=== PATIENT | male | born 1950 | race Caucasian/White ===

== ENCOUNTER 2016-12-29 18:52 | Inpatient (IN) | payer MEDICARE, MEDICAID ==
[~2016-12-29] VITALS: Ht 170.2 cm; Wt 72.7 kg
[~2016-12-29 18:52] MED LIST: BACL-19 PO; DIAZ5TAB PO; LEVO5TAB20 PO; OXYC5CAP4 PO; RANI150T8 PO; RANI300C PO; SIMV5TAB5 PO; ZOLP-413 PO
[2016-12-29] MEDS ORDERED: CALCIUM CHLORIDE 10%, 10ML SYR ONE (19:15)
[2016-12-29] MEDS ORDERED: DILTIAZEM 5 MG/ML, 5ML ONE (19:15)
[2016-12-29] MEDS ORDERED: SODIUM CHLORIDE FLUSH 10ML SYR IVF ONE (19:30)
[2016-12-29] MEDS ORDERED: CALCIUM CHLORIDE 10%, 10ML SYR IVPush ONE (19:30)
[2016-12-29] MEDS ORDERED: SODIUM CHLORIDE 0.9% 1,000ML IVBOLUS ONE ×2 (19:30→20:00)
[2016-12-29] MEDS ORDERED: CALCIUM CHLORIDE 13.6 MEQ in SODIUM CHLORIDE 0.9% 100 ML IV ONE (19:30)
[2016-12-29] MEDS ORDERED: DILTIAZEM 5 MG/ML, 5ML IVPush ONE (19:30)
[2016-12-29 19:46] LABS: BLOOD UREA NITROGEN 24 mg/dL (7-18)
[2016-12-29 19:52] LABS: ASPARTATE AMINO TRANSFERASE 6 U/L (15-37)
[2016-12-29 19:53] LABS: IS PT STATUS REG ER OR PRE ER? YES
[2016-12-29] MEDS ORDERED: CALC1POW PO (20:38)
[2016-12-29] MEDS ORDERED: POLY17PO5 PO (20:38)
[2016-12-29] MEDS ORDERED: LABETALOL 5MG/ML, 20ML IV PRN (22:00)
[2016-12-29] MEDS ORDERED: DOCUSATE 100 MG CAPSULE PO PRN (22:00)
[2016-12-29] MEDS ORDERED: BISACODYL 10 MG SUPP PR PRN (22:00)
[2016-12-29] MEDS ORDERED: POLYETHYLENE GLYCOL 17 GM PACKET PO PRN (22:00)
[2016-12-29] MEDS ORDERED: ONDANSETRON ODT 4 MG PO PRN (22:00)
[2016-12-29 22:41] VITALS: BP 152/64
[2016-12-30] MEDS: METOPROLOL TARTRATE 25 MG TABLET PO SCH ×3 (00:21→17:32)
[2016-12-30] MEDS: HEPARIN 5,000 UNITS/ML, 1ML SQ SCH ×3 (00:21→17:32)
[2016-12-30 00:30] LABS: IS PT STATUS REG ER OR PRE ER? NO
[2016-12-30] MEDS: ZOLPIDEM 5MG TABLET PO PRN (00:59)
[2016-12-30 02:26] VITALS: BP 93/51
[2016-12-30] MEDS: ASPIRIN 325 MG TABLET PO SCH (05:55)
[2016-12-30 06:03] LABS: ASPARTATE AMINO TRANSFERASE 10 U/L (15-37); BLOOD UREA NITROGEN 34 mg/dL (7-18)
[2016-12-30 06:04] LABS: IS PT STATUS REG ER OR PRE ER? NO
[2016-12-30 07:39] VITALS: BP 111/66
[2016-12-30] MEDS: SEVELAMER 800MG TABLET PO SCH ×3 (08:47→17:32)
[2016-12-30] MEDS: FAMOTIDINE 20 MG TABLET PO SCH (08:47)
[2016-12-30 14:00] VITALS: BP 99/65
[2016-12-30 18:57] VITALS: BP 106/70
[2016-12-30 18:58] LABS: IS PT STATUS REG ER OR PRE ER? NO
[2016-12-30] MEDS ORDERED: SIMVASTATIN 10 MG TABLET PO SCH (21:00)
[2016-12-31] MEDS: ZOLPIDEM 5MG TABLET PO PRN (00:36)
[2016-12-31] MEDS: HEPARIN 5,000 UNITS/ML, 1ML SQ SCH ×2 (00:36→10:57)
[2016-12-31 01:04] VITALS: BP 117/70
[2016-12-31] MEDS: METOPROLOL TARTRATE 25 MG TABLET PO SCH (05:48)
[2016-12-31] MEDS: ASPIRIN 325 MG TABLET PO SCH (05:48)
[2016-12-31 06:08] LABS: BLOOD UREA NITROGEN 58 mg/dL (7-18)
[2016-12-31 06:24] LABS: IS PT STATUS REG ER OR PRE ER? NO
[2016-12-31] MEDS ORDERED: REGADENOSON 0.4 MG/5 ML SYRINGE ONE (09:26)
[2016-12-31] MEDS: FAMOTIDINE 20 MG TABLET PO SCH (10:56)
[2016-12-31] MEDS: SEVELAMER 800MG TABLET PO SCH ×2 (10:56→12:00)
[2016-12-31 11:38] VITALS: BP 108/76
[2016-12-31] MEDS ORDERED: METO25TA35 PO (12:39)
[2016-12-31] MEDS ORDERED: ASPI325T4 PO (12:40)
[2016-12-31 13:35] VITALS: BP 119/66
== END 2016-12-31 15:04 | disposition home or self-care (01) | DRG 291 ==
LOC: ED 20:21 → EDIP 21:23 → 5SO 22:12
PROVIDERS: ADMIT Internal Medicine; ATTEND Internal Medicine
DX: I13.2 Hypertensive heart and chronic kidney disease with heart failure and with stage 5 chronic kidney disease, or end stage renal disease (principal); N18.6 End stage renal disease; I50.20 Unspecified systolic (congestive) heart failure; I48.0 Paroxysmal atrial fibrillation; E83.52 Hypercalcemia; G25.3 Myoclonus; F31.9 Bipolar disorder, unspecified; F41.9 Anxiety disorder, unspecified; E11.22 Type 2 diabetes mellitus with diabetic chronic kidney disease; I25.10 Atherosclerotic heart disease of native coronary artery without angina pectoris; F22 Delusional disorders; J44.9 Chronic obstructive pulmonary disease, unspecified; G47.8 Other sleep disorders; G47.419 Narcolepsy without cataplexy; F17.210 Nicotine dependence, cigarettes, uncomplicated; G89.29 Other chronic pain; M54.9 Dorsalgia, unspecified; I95.9 Hypotension, unspecified; Z99.2 Dependence on renal dialysis; Z88.6 Allergy status to analgesic agent; Z88.1 Allergy status to other antibiotic agents; Z86.73 Personal history of transient ischemic attack (TIA), and cerebral infarction without residual deficits; Z91.19 Patient's noncompliance with other medical treatment and regimen; Z88.8 Allergy status to other drugs, medicaments and biological substances; Z95.5 Presence of coronary angioplasty implant and graft
CPT/HCPCS: 36415; 71010; 78452; 80048; 80053; 80061; 82310; 83735; 83880; 84436; 84439; 84443; 84484; 85025; 85379; 85610; 85730; 93005; 93017; 93306; 96374; 96375; J1644; J2785; A9502; C9898; J7030

== ENCOUNTER 2019-10-04 18:32 | Inpatient (IN) | payer MEDICARE, MEDICAID ==
[~2019-10-04] VITALS: Ht 170.2 cm; Wt 70.1 kg
[~2019-10-04 18:32] MED LIST changes: +ASPI325T17 PO; +CALC1POW PO; -LEVO5TAB20 PO; +LEVO5TAB29 PO; +METO25TA35 PO; +OXYC5CAP2 PO; -OXYC5CAP4 PO; +POLY17PO5 PO; +RANI-467 PO; -RANI150T8 PO; +SIMV5TAB14 PO; -SIMV5TAB5 PO
--- NOTE | 2019-10-04 19:19 | NUR ---
PT AMBULATORY TO ED FROM HOME. C/O COUGH, CONGESTION, CP, SOB, EAR ACHE, ABDOMINAL PAIN, CONSTIPATION, CHILLS X1 MONTH. EXP WHEEZES THROUGHOUT. 94%RA. CLEAR MUCUS, PROD COUGH. PIV EST 20 L AC. AV FISTUAL R ARM, +THRILL+BRUIT. A&OX4 GCS 15. 5/10 CHEST TIGHTNESS, NONRADIATING. ERMD AT BEDSIDE FOR EVAL. LABS SENT. CXR PENDING. CALL [place] IN REACH. CTM.
[2019-10-04 19:31] LABS: ALANINE AMINOTRANSFERASE 19 U/L (12-78); ALBUMIN 3.4 g/dL (3.4-5.0); ANION GAP 8 mmol/L (5-15); CALCIUM 9.9 mg/dL (8.5-10.1); CHLORIDE 98 mmol/L (98-107); CREATININE 7.54 mg/dL (0.7-1.3)
[2019-10-04 19:35] LABS: ALKALINE PHOSPHATASE 106 U/L (45-117); BILIRUBIN,TOTAL 0.6 mg/dL (0.2-1.0); TOTAL PROTEIN 7.2 g/dL (6.4-8.2)
[2019-10-04 19:45] LABS: BASOPHILS # (AUTO) 0.02 x10^3/uL (0-0.1); BASOPHILS % (AUTO) 0 % (0-1); EOSINOPHILS # (AUTO) 0.03 x10^3/uL (0-0.4); EOSINOPHILS % (AUTO) 1 % (1-7); LYMPHOCYTES # (AUTO) 0.82 x10^3/uL (1-3.4); LYMPHOCYTES % (AUTO) 15 % (22-44); MD MORPH REVIEW ONLY; MEAN CORPUSCULAR HGB CONC 33.1 g/dL (33.2-36.2); MEAN CORPUSCULAR VOLUME 96.7 fL (81-97); MONOCYTES # (AUTO) 0.56 x10^3/uL (0.2-0.8); MONOCYTES % (AUTO) 10 % (2-9); NEUTROPHILS # (AUTO) 4.15 x10^3/uL (1.8-6.8); NEUTROPHILS % (AUTO) 75 % (42-75); PLATELET COUNT 73 x10^3/uL (130-400); RED BLOOD COUNT 3.72 x10^6/uL (4.38-5.82); RED CELL DISTRIBUTION WIDTH 14.1 % (9.4-14.8)
[2019-10-04 19:47] LABS: <PLATELET ESTIMATE> DECREASED; <PLT MORPHOLOGY> NORMAL PLT MORPH; ANISOCYTOSIS 1+; OVALOCYTES 1+; POLYCHROMASIA 1+
--- NOTE | 2019-10-04 19:52 | NUR ---
RECHECK. NAD. CALL [place] IN REACH.
[2019-10-04] MEDS ORDERED: BENZONATATE 100 MG CAPSULE ONE (20:26)
--- NOTE | 2019-10-04 20:27 | NUR ---
pt c/o cough, tesselon rosie order obtained, k 5.6, aware. as
[2019-10-04] MEDS ORDERED: BENZONATATE 100 MG CAPSULE PO ONE (21:00)
--- NOTE | 2019-10-04 21:04 | NUR ---
pt to be admit for cp. aware and agrees. attempt x1 to call floor rn. as
--- NOTE | 2019-10-04 21:15 | NUR ---
report to niles chun. dr. kaur in room for eval. pt to be tx after. as
[2019-10-04] MEDS ORDERED: NITROGLYCERIN 0.4 MG BOTTLE (25 TABS) SL PRN (22:00)
[2019-10-04] MEDS ORDERED: DILTIAZEM 5 MG/ML, 5ML IVPush PRN (22:00)
[2019-10-04] MEDS ORDERED: PHARMACY MAY ADJ FOR RENAL FX MC PRN (22:00)
--- NOTE | 2019-10-04 22:19 | NUR ---
chapin changed. report to chel chun. as
[2019-10-04 22:43] VITALS: BP 170/77
[2019-10-04] MEDS: ATORVASTATIN 40 MG TABLET PO SCH (22:59)
[2019-10-04] MEDS: GUAIFENESIN 200 MG TABLET PO SCH (22:59)
[2019-10-04] MEDS: HEPARIN 5,000 UNITS/ML, 1ML SQ SCH (22:59)
[2019-10-04] MEDS: OXYcodone IR 5MG TABLET PO PRN (23:00)
[2019-10-05] VITALS (14 sets, daily range): BP systolic 81–191; BP diastolic 41–85
[2019-10-05] MEDS ORDERED: BENZONATATE 100 MG CAPSULE PO PRN (00:30)
[2019-10-05] MEDS: OXYcodone IR 5MG TABLET PO PRN (00:36)
[2019-10-05 01:02] LABS: TROPONIN I 0.043 ng/mL (0.000-0.045)
[2019-10-05 05:14] LABS: MEAN CORPUSCULAR HEMOGLOBIN 31.8 pg (27.5-34.5); MEAN CORPUSCULAR HGB CONC 32.5 g/dL (33.2-36.2); MEAN CORPUSCULAR VOLUME 97.7 fL (81-97); MEAN PLATELET VOLUME 9.3 fL (7.4-10.4); PLATELET COUNT 81 x10^3/uL (130-400); RED CELL DISTRIBUTION WIDTH 13.9 % (9.4-14.8)
[2019-10-05 05:26] LABS: ANION GAP 4 mmol/L (5-15); CALCIUM 10.1 mg/dL (8.5-10.1); CHLORIDE 96 mmol/L (98-107)
[2019-10-05] MEDS: ASPIRIN 325 MG TABLET EC PO SCH (05:29)
[2019-10-05] MEDS: GUAIFENESIN 200 MG TABLET PO SCH ×4 (05:29→21:00)
[2019-10-05] MEDS: METOPROLOL TARTRATE 25 MG TAB PO SCH ×2 (05:29→18:00)
[2019-10-05] MEDS: HEPARIN 5,000 UNITS/ML, 1ML SQ SCH ×3 (05:29→22:00)
[2019-10-05 05:33] LABS: CHOL/HDL RATIO 2.2; CHOLESTEROL, TOTAL 125 mg/dL (140-239); CREATININE 8.42 mg/dL (0.7-1.3); HDL CHOL % 46 % (26-37); HDL CHOLESTEROL (DIRECT) 58 mg/dL (40-60); LDL CHOLESTEROL,CALCULATED 46 mg/dL (54-169); LDL/HDL RATIO 0.8 (0.5-3.0); TRIGLYCERIDES 105 mg/dL (50-200); TROPONIN I 0.025 ng/mL (0.000-0.045); VLDL CHOLESTEROL 21 mg/dL (0-25)
[2019-10-05 05:46] LABS: BASOPHILS # (AUTO) 0.03 x10^3/uL (0-0.1); BASOPHILS % (AUTO) 0 % (0-1); EOSINOPHILS % (AUTO) 0 % (1-7); LYMPHOCYTES # (AUTO) 1.13 x10^3/uL (1-3.4); LYMPHOCYTES % (AUTO) 18 % (22-44); MD SCAN; MONOCYTES # (AUTO) 0.75 x10^3/uL (0.2-0.8); MONOCYTES % (AUTO) 12 % (2-9); NEUTROPHILS # (AUTO) 4.24 x10^3/uL (1.8-6.8); NEUTROPHILS % (AUTO) 69 % (42-75)
[2019-10-05] MEDS ORDERED: REGULAR INSULIN 62.5 UNITS in SODIUM CHLORIDE 0.9% 249.375 ML IV PRN (07:30)
[2019-10-05] MEDS ORDERED: CEFUROXIME 1.5 GM in SODIUM CHLORIDE 0.9% 50 ML IVPB PRN (07:30)
[2019-10-05] MEDS ORDERED: MANNITOL PMX 20% 500 ML IVPB PRN (07:30)
[2019-10-05] MEDS ORDERED: ALBUMIN HUMAN 5% 500 ML IV PRN (07:30)
[2019-10-05] MEDS ORDERED: VANCOMYCIN 1,100 MG in SODIUM CHLORIDE 0.9% 250 ML IV PRN (07:30)
[2019-10-05] MEDS ORDERED: PHENYLEPHRINE 10 MG in SODIUM CHLORIDE 0.9% 249 ML IV PRN (07:30)
[2019-10-05] MEDS ORDERED: POTASSIUM CHLORIDE 80 MEQ, SODIUM BICARBONATE 8.4% 10 MEQ, MAGNESIUM SULFATE 0.5 GM, LI... IV PRN (07:30)
[2019-10-05] MEDS ORDERED: EPINEPHRINE 2 MG in SODIUM CHLORIDE 0.9% 248 ML IV SCH (07:30)
[2019-10-05] MEDS ORDERED: DEXMEDETOMIDINE 200 MCG in SODIUM CHLORIDE 0.9% 48 ML IV SCH (07:30)
[2019-10-05] MEDS ORDERED: FAMOTIDINE 20 MG TABLET PO SCH (09:00)
[2019-10-05] MEDS: POLYETHYLENE GLYCOL 17 GM PACKET PO SCH (09:00)
[2019-10-05] MEDS ORDERED: REGADENOSON 0.4 MG/5 ML SYRINGE ONE (09:41)
[2019-10-05] MEDS: ONDANSETRON 2MG/ML, 2ML IVPush PRN (10:22)
[2019-10-05] MEDS ORDERED: AZITHROMYCIN 500 MG TABLET PO ONE (11:00)
[2019-10-05 11:03] LABS: RAPID INFLUENZA A Negative (Negative); RAPID INFLUENZA B Negative (Negative)
[2019-10-05] MEDS ORDERED: CALCIUM CHLORIDE 10%, 10ML SYR ONE ×5 (11:24→18:27)
[2019-10-05] MEDS ORDERED: EPINEPHRINE SYRINGE 0.1 MG/ML, 10ML ONE ×2 (11:24→15:03)
[2019-10-05] MEDS ORDERED: ADENOSINE 6 MG/2 ML ONE (11:24)
[2019-10-05] MEDS ORDERED: ROCURONIUM 10MG/ML,5ML ONE ×4 (11:25→18:28)
[2019-10-05] MEDS ORDERED: PROPOFOL 10 MG/ML, 100ML IV ONE (11:25)
[2019-10-05] MEDS ORDERED: ETOMIDATE 20 MG/10 ML ONE (11:25)
[2019-10-05] MEDS: morphine SULFATE 10 MG/ML, 1ML IVPush PRN (12:34)
[2019-10-05] MEDS ORDERED: ROCURONIUM 10 MG/ML,10ML IVPush ONE (13:35)
[2019-10-05] MEDS ORDERED: ETOMIDATE 20 MG/10 ML IVPush ONE (13:35)
[2019-10-05] MEDS ORDERED: NITROGLYCERIN/D5W PMX 250 ML ONE (13:40)
[2019-10-05 13:42] LABS: ALANINE AMINOTRANSFERASE 18 U/L (12-78); ANION GAP 9 mmol/L (5-15); CALCIUM 10.5 mg/dL (8.5-10.1); CHLORIDE 97 mmol/L (98-107); CREATININE 9.03 mg/dL (0.7-1.3)
[2019-10-05 13:46] LABS: ALKALINE PHOSPHATASE 128 U/L (45-117); BILIRUBIN,TOTAL 0.8 mg/dL (0.2-1.0); TOTAL PROTEIN 8.9 g/dL (6.4-8.2); TROPONIN I 0.065 ng/mL (0.000-0.045)
[2019-10-05] MEDS ORDERED: ADENOSINE 6 MG/2 ML IVPush ONE ×2 (13:52→13:56)
[2019-10-05] MEDS ORDERED: ADENOSINE 90 MG/30 ML IVPush ONE (13:56)
[2019-10-05] MEDS ORDERED: NITROGLYCERIN/D5W PMX 250 ML IV PRN (14:00)
[2019-10-05] MEDS ORDERED: FENTANYL PF 100 MCG/2ML ONE (14:02)
[2019-10-05] MEDS ORDERED: DILTIAZEM 5 MG/ML, 5ML IVPush ONE (14:03)
[2019-10-05] MEDS ORDERED: LIDOCAINE 2%, 20ML ONE (14:04)
[2019-10-05] MEDS ORDERED: ADENOSINE 60 MG/20 ML IVPush ONE (14:43)
[2019-10-05] MEDS ORDERED: PROPOFOL 100 ML IV PRN ×2 (15:00→17:28)
[2019-10-05] MEDS ORDERED: EPINEPHRINE 1 MG/ML, 1ML ONE ×6 (15:03→18:27)
[2019-10-05] MEDS ORDERED: AMIODARONE 50 MG/ML, 3ML ONE ×3 (15:03→18:27)
[2019-10-05] MEDS ORDERED: MAGNESIUM SULFATE 1 GM/2 ML ONE (15:03)
[2019-10-05] MEDS ORDERED: CEFAZOLIN 1,000 MG ONE (15:31)
[2019-10-05] MEDS ORDERED: AMIODARONE 900 MG in DEXTROSE 5% 482 ML IV PRN (16:00)
[2019-10-05] MEDS ORDERED: FILTER 0.22 MICRON FOR AMIODARONE IV PRN (16:00)
[2019-10-05] MEDS ORDERED: EPINEPHRINE 2 MG in SODIUM CHLORIDE 0.9% 248 ML IV PRN (16:30)
[2019-10-05] MEDS ORDERED: SODIUM BICARB 8.4%, 50ML SYRINGE ONE ×7 (16:46→18:27)
[2019-10-05] MEDS ORDERED: FENTANYL PF 250 MCG/5ML ONE (16:51)
[2019-10-05] MEDS ORDERED: MIDAZOLAM 10MG/2 ML ONE (16:51)
[2019-10-05] MEDS ORDERED: VASOPRESSIN 100 UNIT in SODIUM CHLORIDE 0.9% 495 ML IV PRN (17:00)
[2019-10-05] MEDS ORDERED: HEPARIN 1,000 UNITS/ML, 30ML ONE (19:05)
[2019-10-05] MEDS ORDERED: EPINEPHRINE 5 MG in SODIUM CHLORIDE 0.9% 245 ML IV PRN (19:25)
[2019-10-05] MEDS ORDERED: VANCOMYCIN PER PHARMACY MC PRN (19:30)
[2019-10-05] MEDS ORDERED: VECURONIUM 50 MG in SODIUM CHLORIDE 0.9% 250 ML IV PRN (19:30)
[2019-10-05] MEDS ORDERED: VECURONIUM 10 MG IVPush ONE (19:30)
[2019-10-05] MEDS ORDERED: FENTANYL PF 2,500 MCG in SODIUM CHLORIDE 0.9% 200 ML IV PRN (19:30)
[2019-10-05] MEDS ORDERED: PHARMACY MAY ADJ FOR RENAL FX MC PRN (19:30)
[2019-10-05] MEDS ORDERED: PHARMACOKINETIC MONITORING MC PRN (20:30)
[2019-10-05] MEDS: ATORVASTATIN 40 MG TABLET PO SCH (21:00)
[2019-10-05] MEDS ORDERED: EPINEPHRINE 10 MG in SODIUM CHLORIDE 0.9% 240 ML IV PRN (21:22)
[2019-10-05] MEDS ORDERED: PHARMACOKINETIC CONSULTATION MC ONE (21:30)
[2019-10-05] MEDS: MIDAZOLAM HCL 25 MG in SODIUM CHLORIDE 0.9% 245 ML IV PRN (21:31)
[2019-10-05] MEDS: PIPERACILLIN/TAZO/PMX 3.375GM 50 ML IV SCH (21:33)
[2019-10-05 22:13] LABS: ALANINE AMINOTRANSFERASE 675 U/L (12-78); ALBUMIN 2.7 g/dL (3.4-5.0); ANION GAP 13 mmol/L (5-15); CALCIUM 9.1 mg/dL (8.5-10.1); CHLORIDE 106 mmol/L (98-107); CREATININE 4.93 mg/dL (0.7-1.3)
[2019-10-05 22:20] LABS: INTERNATIONAL NORMALIZED RATIO 1.29 (0.93-1.1); PROTHROMBIN TIME 13.7 Seconds (9.6-11.5)
[2019-10-05 22:21] LABS: ALKALINE PHOSPHATASE 75 U/L (45-117); BILIRUBIN,TOTAL 2.3 mg/dL (0.2-1.0); TOTAL PROTEIN 5.3 g/dL (6.4-8.2)
[2019-10-05 22:47] LABS: MEAN CORPUSCULAR HEMOGLOBIN 30.8 pg (27.5-34.5); MEAN CORPUSCULAR HGB CONC 33.7 g/dL (33.2-36.2); MEAN CORPUSCULAR VOLUME 91.2 fL (81-97); RED BLOOD COUNT 4.74 x10^6/uL (4.38-5.82); RED CELL DISTRIBUTION WIDTH 15.9 % (9.4-14.8)
[2019-10-05 22:57] LABS: MD YES; MEAN PLATELET VOLUME 8.8 fL (7.4-10.4); PLATELET COUNT 79 x10^3/uL (130-400)
[2019-10-05 22:58] LABS: <PLATELET ESTIMATE> DECREASED; <PLT MORPHOLOGY> NORMAL PLT MORPH; BAND#(MANUAL) 0.71 x10^3/uL; BANDS%(MANUAL) 7 % (0-7); LYMPH#(MANUAL) 0.31 x10^3/uL (1-3.4); LYMPHS% (MANUAL) 3 % (22-44); METAMYELOCYTES% (MANUAL) 2 % (0-1); MONOS#(MANUAL) 0.31 x10^3/uL (0.3-2.7); MONOS% (MANUAL) 3 % (2-9); SEG#(MANUAL) 8.67 x10^3/uL (1.8-6.8); SEGS% (MANUAL) 85 % (42-75)
[2019-10-05 22:59] LABS: ANISOCYTOSIS 1+; OVALOCYTES 1+; POLYCHROMASIA 1+
[2019-10-05] MEDS: PHENYLEPHRINE 20 MG in SODIUM CHLORIDE 0.9% 248 ML IV PRN (23:31)
[2019-10-06] MEDS ORDERED: VANCOMYCIN 1,300 MG in SODIUM CHLORIDE 0.9% 250 ML IV ONE
[2019-10-06] MEDS: ARTIFICIAL TEARS OINT 3.5 GM EACHEYE SCH ×4 (02:02→17:05)
[2019-10-06] MEDS: PIPERACILLIN/TAZO/PMX 3.375GM 50 ML IV SCH ×3 (02:02→14:33)
[2019-10-06 02:29] LABS: ALANINE AMINOTRANSFERASE 698 U/L (12-78); ALBUMIN 2.2 g/dL (3.4-5.0); ANION GAP 15 mmol/L (5-15); CALCIUM 8.5 mg/dL (8.5-10.1); CHLORIDE 106 mmol/L (98-107); CREATININE 6.22 mg/dL (0.7-1.3)
[2019-10-06 02:37] LABS: ALKALINE PHOSPHATASE 67 U/L (45-117); BILIRUBIN,TOTAL 2.3 mg/dL (0.2-1.0); TOTAL PROTEIN 4.5 g/dL (6.4-8.2)
[2019-10-06 03:11] LABS: MEAN CORPUSCULAR HEMOGLOBIN 30.6 pg (27.5-34.5); MEAN CORPUSCULAR HGB CONC 33.5 g/dL (33.2-36.2); MEAN CORPUSCULAR VOLUME 91.2 fL (81-97); MEAN PLATELET VOLUME 9.1 fL (7.4-10.4); PLATELET COUNT 64 x10^3/uL (130-400); RED BLOOD COUNT 4.38 x10^6/uL (4.38-5.82); RED CELL DISTRIBUTION WIDTH 15.9 % (9.4-14.8)
[2019-10-06 03:13] LABS: MD YES
[2019-10-06 03:15] LABS: BAND#(MANUAL) 0.79 x10^3/uL; BANDS%(MANUAL) 9 % (0-7); LYMPH#(MANUAL) 1.06 x10^3/uL (1-3.4); LYMPHS% (MANUAL) 12 % (22-44); METAMYELOCYTES# (MANUAL) 0.26 x10^3/uL (0-0); METAMYELOCYTES% (MANUAL) 3 % (0-1); REACTIVE LYMPHS # (MANUAL) 0.09 x10^3/uL (0-0); REACTIVE LYMPHS % (MANUAL) 1 % (0-0); SEGS% (MANUAL) 75 % (42-75)
[2019-10-06 03:16] LABS: ANISOCYTOSIS 1+
[2019-10-06 03:17] LABS: <PLATELET ESTIMATE> DECREASED; <PLT MORPHOLOGY> NORMAL PLT MORPH; OVALOCYTES 1+; PMNS WITH VACUOLES 1+; POLYCHROMASIA 1+
[2019-10-06] MEDS: MIDAZOLAM HCL 25 MG in SODIUM CHLORIDE 0.9% 245 ML IV PRN (03:26)
[2019-10-06] MEDS ORDERED: FENTANYL PF 1,000 MCG in SODIUM CHLORIDE 0.9% 80 ML IV PRN (04:00)
[2019-10-06] MEDS: PHENYLEPHRINE 20 MG in SODIUM CHLORIDE 0.9% 248 ML IV PRN (04:06)
[2019-10-06] MEDS: INSULIN LISPRO 100 UNITS/ML, PEN MEDIUM DOSE SS SQ-INSULIN SCH ×5 (04:33→20:00)
[2019-10-06] MEDS: HEPARIN 5,000 UNITS/ML, 1ML SQ SCH (06:00)
[2019-10-06] MEDS: GUAIFENESIN 200 MG TABLET PO SCH ×3 (06:00→14:52)
[2019-10-06] MEDS: ASPIRIN 325 MG TABLET EC PO SCH (06:00)
[2019-10-06] MEDS: METOPROLOL TARTRATE 25 MG TAB PO SCH ×2 (06:00→17:30)
[2019-10-06] MEDS ORDERED: PHENYLEPHRINE 50 MG in SODIUM CHLORIDE 0.9% 245 ML IV PRN ×2 (06:09→07:00)
[2019-10-06 06:23] LABS: MD YES; MEAN CORPUSCULAR HEMOGLOBIN 30.4 pg (27.5-34.5); MEAN CORPUSCULAR HGB CONC 33.4 g/dL (33.2-36.2); MEAN CORPUSCULAR VOLUME 90.8 fL (81-97); PLATELET COUNT 63 x10^3/uL (130-400); RED BLOOD COUNT 4.43 x10^6/uL (4.38-5.82)
[2019-10-06 06:30] LABS: ANISOCYTOSIS 1+; BAND#(MANUAL) 1.15 x10^3/uL; BANDS%(MANUAL) 12 % (0-7); LYMPH#(MANUAL) 0.67 x10^3/uL (1-3.4); LYMPHS% (MANUAL) 7 % (22-44); METAMYELOCYTES% (MANUAL) 1 % (0-1); NRBC % (MANUAL) 1 % (0-1); SEG#(MANUAL) 7.68 x10^3/uL (1.8-6.8); SEGS% (MANUAL) 80 % (42-75)
[2019-10-06] MEDS ORDERED: MIDAZOLAM HCL 50 MG in SODIUM CHLORIDE 0.9% 40 ML IV PRN ×2 (06:30→07:00)
[2019-10-06] MEDS ORDERED: VASOPRESSIN 20 UNIT in SODIUM CHLORIDE 0.9% 99 ML IV PRN ×3 (06:30→13:00)
[2019-10-06 06:31] LABS: <PLATELET ESTIMATE> DECREASED; <PLT MORPHOLOGY> NORMAL PLT MORPH; OVALOCYTES 1+; PMNS WITH VACUOLES 1+; POLYCHROMASIA 1+
[2019-10-06] MEDS: FENTANYL PF 1,000 MCG in SODIUM CHLORIDE 0.9% 80 ML IV PRN ×2 (07:00→17:22)
[2019-10-06] MEDS ORDERED: VECURONIUM 50 MG in SODIUM CHLORIDE 0.9% 50 ML IV PRN (07:00)
[2019-10-06 07:17] LABS: ALANINE AMINOTRANSFERASE 809 U/L (12-78); ALBUMIN 2.2 g/dL (3.4-5.0); ANION GAP 8 mmol/L (5-15); CALCIUM 8.4 mg/dL (8.5-10.1); CHLORIDE 107 mmol/L (98-107); CREATININE 6.33 mg/dL (0.7-1.3)
[2019-10-06 07:23] LABS: ALKALINE PHOSPHATASE 65 U/L (45-117); BILIRUBIN,TOTAL 2.5 mg/dL (0.2-1.0); TOTAL PROTEIN 4.4 g/dL (6.4-8.2); VANCOMYCIN,RANDOM 30.1 mcg/mL
[2019-10-06] MEDS ORDERED: ALBUMIN HUMAN 25% 100 ML ONE (07:57)
[2019-10-06] MEDS: POLYETHYLENE GLYCOL 17 GM PACKET PO SCH (08:57)
[2019-10-06] MEDS ORDERED: AZITHROMYCIN 250 MG TABLET PO SCH (09:00)
[2019-10-06] MEDS: PANTOPRAZOLE 40 MG IV IV SCH (09:06)
[2019-10-06] MEDS ORDERED: ALBUMIN HUMAN 5% 500 ML IV ONE (09:30)
[2019-10-06 09:44] LABS: ALANINE AMINOTRANSFERASE 800 U/L (12-78); ALBUMIN 2.7 g/dL (3.4-5.0); ANION GAP 8 mmol/L (5-15); CALCIUM 8.1 mg/dL (8.5-10.1); CHLORIDE 106 mmol/L (98-107); CREATININE 6.37 mg/dL (0.7-1.3)
[2019-10-06 09:53] LABS: ALKALINE PHOSPHATASE 65 U/L (45-117); BILIRUBIN,TOTAL 2.8 mg/dL (0.2-1.0); TOTAL PROTEIN 4.9 g/dL (6.4-8.2)
[2019-10-06 10:07] LABS: MEAN CORPUSCULAR HEMOGLOBIN 30.7 pg (27.5-34.5); MEAN CORPUSCULAR VOLUME 90.4 fL (81-97); MEAN PLATELET VOLUME 8.9 fL (7.4-10.4); PLATELET COUNT 58 x10^3/uL (130-400); RED BLOOD COUNT 4.38 x10^6/uL (4.38-5.82); RED CELL DISTRIBUTION WIDTH 15.7 % (9.4-14.8)
[2019-10-06 10:08] LABS: MD YES
[2019-10-06 10:10] LABS: BAND#(MANUAL) 2.78 x10^3/uL; BANDS%(MANUAL) 26 % (0-7); LYMPH#(MANUAL) 1.61 x10^3/uL (1-3.4); LYMPHS% (MANUAL) 15 % (22-44); METAMYELOCYTES# (MANUAL) 0.54 x10^3/uL (0-0); METAMYELOCYTES% (MANUAL) 5 % (0-1); MONOS#(MANUAL) 0.54 x10^3/uL (0.3-2.7); MONOS% (MANUAL) 5 % (2-9); SEG#(MANUAL) 5.24 x10^3/uL (1.8-6.8); SEGS% (MANUAL) 49 % (42-75)
[2019-10-06 10:11] LABS: <PLATELET ESTIMATE> DECREASED; <PLT MORPHOLOGY> NORMAL PLT MORPH; ANISOCYTOSIS 1+; OVALOCYTES 1+; POLYCHROMASIA 1+
[2019-10-06] MEDS ORDERED: CEFAZOLIN PMX 1GM/50ML 50 ML ONE (13:04)
[2019-10-06] MEDS ORDERED: CEFAZOLIN 1,000 MG IM ONE (13:11)
[2019-10-06] MEDS ORDERED: FENTANYL PF 250 MCG/5ML ONE (13:31)
[2019-10-06] MEDS ORDERED: CALCIUM CHLORIDE 10%, 10ML SYR ONE (13:31)
[2019-10-06 15:01] LABS: MEAN CORPUSCULAR HEMOGLOBIN 30.8 pg (27.5-34.5); MEAN CORPUSCULAR HGB CONC 33.8 g/dL (33.2-36.2); MEAN PLATELET VOLUME 9.1 fL (7.4-10.4); PLATELET COUNT 74 x10^3/uL (130-400); RED BLOOD COUNT 3.73 x10^6/uL (4.38-5.82); RED CELL DISTRIBUTION WIDTH 15.9 % (9.4-14.8)
[2019-10-06 15:02] LABS: MD YES
[2019-10-06 15:03] LABS: ALANINE AMINOTRANSFERASE 585 U/L (12-78); ALBUMIN 2.7 g/dL (3.4-5.0); ANION GAP 11 mmol/L (5-15); CALCIUM 8.4 mg/dL (8.5-10.1); CHLORIDE 107 mmol/L (98-107); CREATININE 6.38 mg/dL (0.7-1.3)
[2019-10-06 15:05] LABS: ALKALINE PHOSPHATASE 58 U/L (45-117); TOTAL PROTEIN 4.8 g/dL (6.4-8.2)
[2019-10-06 15:24] LABS: BAND#(MANUAL) 3.68 x10^3/uL; BANDS%(MANUAL) 35 % (0-7); LYMPH#(MANUAL) 1.89 x10^3/uL (1-3.4); LYMPHS% (MANUAL) 18 % (22-44); METAMYELOCYTES# (MANUAL) 0.84 x10^3/uL (0-0); METAMYELOCYTES% (MANUAL) 8 % (0-1); MONOS#(MANUAL) 0.32 x10^3/uL (0.3-2.7); MONOS% (MANUAL) 3 % (2-9); SEG#(MANUAL) 3.78 x10^3/uL (1.8-6.8); SEGS% (MANUAL) 36 % (42-75)
[2019-10-06 15:25] LABS: ANISOCYTOSIS 1+; OVALOCYTES 1+; POLYCHROMASIA 1+
[2019-10-06 15:26] LABS: <PLATELET ESTIMATE> DECREASED; <PLT MORPHOLOGY> NORMAL PLT MORPH
[2019-10-06] MEDS: HYDROCORTISONE 100 MG INJ. IVPush SCH (17:05)
[2019-10-06] MEDS: EPINEPHRINE 10 MG in SODIUM CHLORIDE 0.9% 240 ML IV PRN ×2 (17:24→22:24)
[2019-10-06] MEDS: AMIODARONE 450 MG in DEXTROSE 5% 241 ML IV PRN ×2 (17:25→22:24)
[2019-10-06] MEDS ORDERED: PIPERACILLIN/TAZO 0.75 GM in SODIUM CHLORIDE 0.9% 50 ML IV PRN (17:30)
[2019-10-06] MEDS: DEXMEDETOMIDINE 400 MCG in SODIUM CHLORIDE 0.9% 96 ML IV PRN (17:54)
[2019-10-06 20:16] LABS: ALANINE AMINOTRANSFERASE 616 U/L (12-78); ALBUMIN 2.7 g/dL (3.4-5.0); ANION GAP 8 mmol/L (5-15); CALCIUM 8.9 mg/dL (8.5-10.1); CHLORIDE 104 mmol/L (98-107); CREATININE 3.79 mg/dL (0.7-1.3)
[2019-10-06 20:19] LABS: ALKALINE PHOSPHATASE 58 U/L (45-117); BILIRUBIN,TOTAL 3.2 mg/dL (0.2-1.0); TOTAL PROTEIN 4.9 g/dL (6.4-8.2)
[2019-10-06 20:25] LABS: MEAN CORPUSCULAR HEMOGLOBIN 30.8 pg (27.5-34.5); MEAN CORPUSCULAR HGB CONC 33.9 g/dL (33.2-36.2); MEAN PLATELET VOLUME 9.1 fL (7.4-10.4); PLATELET COUNT 69 x10^3/uL (130-400); RED BLOOD COUNT 3.75 x10^6/uL (4.38-5.82)
[2019-10-06 21:04] LABS: MD YES
[2019-10-06 21:06] LABS: BAND#(MANUAL) 3.42 x10^3/uL; BANDS%(MANUAL) 29 % (0-7); LYMPH#(MANUAL) 0.47 x10^3/uL (1-3.4); LYMPHS% (MANUAL) 4 % (22-44); METAMYELOCYTES# (MANUAL) 0.12 x10^3/uL (0-0); METAMYELOCYTES% (MANUAL) 1 % (0-1); SEG#(MANUAL) 7.79 x10^3/uL (1.8-6.8); SEGS% (MANUAL) 66 % (42-75)
[2019-10-06 21:08] LABS: <PLT MORPHOLOGY> NORMAL PLT MORPH
[2019-10-06 21:09] LABS: <PLATELET ESTIMATE> DECREASED; ANISOCYTOSIS 1+; OVALOCYTES 1+; POLYCHROMASIA 1+
[2019-10-06] MEDS: PIPERACILLIN/TAZO/PMX 2.25GM 50 ML IVPB SCH (22:22)
[2019-10-06 22:45] LABS: MEAN CORPUSCULAR HEMOGLOBIN 30.8 pg (27.5-34.5); MEAN CORPUSCULAR HGB CONC 33.9 g/dL (33.2-36.2); MEAN CORPUSCULAR VOLUME 90.7 fL (81-97); MEAN PLATELET VOLUME 9.2 fL (7.4-10.4); PLATELET COUNT 62 x10^3/uL (130-400); RED BLOOD COUNT 3.54 x10^6/uL (4.38-5.82); RED CELL DISTRIBUTION WIDTH 16.2 % (9.4-14.8)
[2019-10-06 22:55] LABS: ALANINE AMINOTRANSFERASE 585 U/L (12-78); ALBUMIN 2.5 g/dL (3.4-5.0); ANION GAP 6 mmol/L (5-15); CALCIUM 8.9 mg/dL (8.5-10.1); CHLORIDE 106 mmol/L (98-107)
[2019-10-06 22:57] LABS: ALKALINE PHOSPHATASE 53 U/L (45-117); BILIRUBIN,TOTAL 2.8 mg/dL (0.2-1.0); CREATININE 4.12 mg/dL (0.7-1.3); TOTAL PROTEIN 4.7 g/dL (6.4-8.2)
[2019-10-06 23:30] LABS: MD YES
[2019-10-06 23:33] LABS: <PLATELET ESTIMATE> DECREASED; <PLT MORPHOLOGY> NORMAL PLT MORPH; ANISOCYTOSIS 1+; BAND#(MANUAL) 5.11 x10^3/uL; BANDS%(MANUAL) 46 % (0-7); LYMPH#(MANUAL) 0.67 x10^3/uL (1-3.4); LYMPHS% (MANUAL) 6 % (22-44); METAMYELOCYTES# (MANUAL) 0.22 x10^3/uL (0-0); METAMYELOCYTES% (MANUAL) 2 % (0-1); MONOS#(MANUAL) 0.22 x10^3/uL (0.3-2.7); MONOS% (MANUAL) 2 % (2-9); OVALOCYTES 1+; POLYCHROMASIA 1+; SEG#(MANUAL) 4.88 x10^3/uL (1.8-6.8); SEGS% (MANUAL) 44 % (42-75)
[2019-10-07] MEDS: ARTIFICIAL TEARS OINT 3.5 GM EACHEYE SCH ×3 (01:33→11:30)
[2019-10-07] MEDS: HYDROCORTISONE 100 MG INJ. IVPush SCH ×3 (01:35→16:47)
[2019-10-07] MEDS: FENTANYL PF 1,000 MCG in SODIUM CHLORIDE 0.9% 80 ML IV PRN ×2 (03:23→21:21)
[2019-10-07 04:03] LABS: MEAN CORPUSCULAR HGB CONC 34.2 g/dL (33.2-36.2); MEAN CORPUSCULAR VOLUME 90.8 fL (81-97); MEAN PLATELET VOLUME 9.4 fL (7.4-10.4); PLATELET COUNT 64 x10^3/uL (130-400); RED BLOOD COUNT 3.55 x10^6/uL (4.38-5.82); RED CELL DISTRIBUTION WIDTH 16.1 % (9.4-14.8)
[2019-10-07 04:13] LABS: ALBUMIN 2.4 g/dL (3.4-5.0); ANION GAP 6 mmol/L (5-15); CALCIUM 8.8 mg/dL (8.5-10.1); CHLORIDE 105 mmol/L (98-107)
[2019-10-07 04:17] LABS: ALANINE AMINOTRANSFERASE 603 U/L (12-78); ALKALINE PHOSPHATASE 54 U/L (45-117); BILIRUBIN,TOTAL 2.5 mg/dL (0.2-1.0); CREATININE 4.56 mg/dL (0.7-1.3); TOTAL PROTEIN 4.7 g/dL (6.4-8.2)
[2019-10-07 04:33] LABS: MD YES
[2019-10-07 04:35] LABS: BAND#(MANUAL) 4.64 x10^3/uL; BANDS%(MANUAL) 39 % (0-7); LYMPH#(MANUAL) 1.07 x10^3/uL (1-3.4); LYMPHS% (MANUAL) 9 % (22-44); METAMYELOCYTES# (MANUAL) 0.12 x10^3/uL (0-0); METAMYELOCYTES% (MANUAL) 1 % (0-1); MONOS#(MANUAL) 0.48 x10^3/uL (0.3-2.7); MONOS% (MANUAL) 4 % (2-9); SEG#(MANUAL) 5.59 x10^3/uL (1.8-6.8); SEGS% (MANUAL) 47 % (42-75)
[2019-10-07 04:36] LABS: <PLATELET ESTIMATE> DECREASED; <PLT MORPHOLOGY> NORMAL PLT MORPH; ANISOCYTOSIS 1+; OVALOCYTES 1+; POLYCHROMASIA 1+
[2019-10-07] MEDS: PIPERACILLIN/TAZO/PMX 2.25GM 50 ML IVPB SCH ×3 (05:40→22:45)
[2019-10-07] MEDS: INSULIN LISPRO 100 UNITS/ML, PEN MEDIUM DOSE SS SQ-INSULIN SCH ×6 (06:00→22:00)
[2019-10-07 06:08] LABS: MEAN CORPUSCULAR HEMOGLOBIN 30.7 pg (27.5-34.5); MEAN CORPUSCULAR HGB CONC 33.9 g/dL (33.2-36.2); MEAN CORPUSCULAR VOLUME 90.7 fL (81-97); PLATELET COUNT 61 x10^3/uL (130-400); RED BLOOD COUNT 3.52 x10^6/uL (4.38-5.82); RED CELL DISTRIBUTION WIDTH 16.3 % (9.4-14.8)
[2019-10-07 06:14] LABS: ALBUMIN 2.4 g/dL (3.4-5.0); ANION GAP 6 mmol/L (5-15); CALCIUM 8.6 mg/dL (8.5-10.1); CHLORIDE 105 mmol/L (98-107)
[2019-10-07 06:19] LABS: ALANINE AMINOTRANSFERASE 604 U/L (12-78); ALKALINE PHOSPHATASE 55 U/L (45-117); BILIRUBIN,TOTAL 2.5 mg/dL (0.2-1.0); CREATININE 4.66 mg/dL (0.7-1.3); TOTAL PROTEIN 4.6 g/dL (6.4-8.2)
[2019-10-07 06:29] LABS: MD YES
[2019-10-07 06:31] LABS: BANDS%(MANUAL) 25 % (0-7); LYMPH#(MANUAL) 0.34 x10^3/uL (1-3.4); LYMPHS% (MANUAL) 3 % (22-44); MONOS#(MANUAL) 0.11 x10^3/uL (0.3-2.7); MONOS% (MANUAL) 1 % (2-9); SEG#(MANUAL) 7.95 x10^3/uL (1.8-6.8); SEGS% (MANUAL) 71 % (42-75)
[2019-10-07 06:32] LABS: <PLATELET ESTIMATE> DECREASED; <PLT MORPHOLOGY> NORMAL PLT MORPH; ANISOCYTOSIS 1+; OVALOCYTES 1+; POLYCHROMASIA 1+
[2019-10-07] MEDS: POLYETHYLENE GLYCOL 17 GM PACKET PO SCH (08:40)
[2019-10-07] MEDS ORDERED: AMIODARONE 150 MG in DEXTROSE 5% 100 ML IV ONE ×2 (09:00→14:30)
[2019-10-07] MEDS ORDERED: AMIODARONE 50 MG/ML, 3ML IVPush ONE (09:00)
[2019-10-07] MEDS: PANTOPRAZOLE 40 MG IV IV SCH (09:18)
[2019-10-07] MEDS: FILTER 0.22 MICRON FOR AMIODARONE IV PRN (09:21)
[2019-10-07 10:35] LABS: ALBUMIN 2.3 g/dL (3.4-5.0); ANION GAP 9 mmol/L (5-15); CALCIUM 8.7 mg/dL (8.5-10.1); CHLORIDE 103 mmol/L (98-107)
[2019-10-07 10:40] LABS: ALANINE AMINOTRANSFERASE 575 U/L (12-78); ALKALINE PHOSPHATASE 55 U/L (45-117); BILIRUBIN,TOTAL 2.4 mg/dL (0.2-1.0); CREATININE 4.94 mg/dL (0.7-1.3); TOTAL PROTEIN 4.5 g/dL (6.4-8.2)
[2019-10-07 10:51] LABS: MD YES; MEAN CORPUSCULAR HGB CONC 33.8 g/dL (33.2-36.2); MEAN CORPUSCULAR VOLUME 91.6 fL (81-97); MEAN PLATELET VOLUME 9.2 fL (7.4-10.4); PLATELET COUNT 61 x10^3/uL (130-400); RED BLOOD COUNT 3.52 x10^6/uL (4.38-5.82); RED CELL DISTRIBUTION WIDTH 16.3 % (9.4-14.8)
[2019-10-07 10:53] LABS: <PLATELET ESTIMATE> DECREASED; <PLT MORPHOLOGY> NORMAL PLT MORPH; ANISOCYTOSIS 1+; BAND#(MANUAL) 3.07 x10^3/uL; BANDS%(MANUAL) 29 % (0-7); LYMPH#(MANUAL) 0.53 x10^3/uL (1-3.4); LYMPHS% (MANUAL) 5 % (22-44); METAMYELOCYTES# (MANUAL) 0.42 x10^3/uL (0-0); METAMYELOCYTES% (MANUAL) 4 % (0-1); MONOS#(MANUAL) 0.32 x10^3/uL (0.3-2.7); MONOS% (MANUAL) 3 % (2-9); OVALOCYTES 1+; POLYCHROMASIA 1+; SEG#(MANUAL) 6.25 x10^3/uL (1.8-6.8); SEGS% (MANUAL) 59 % (42-75)
[2019-10-07 10:54] LABS: PMNS WITH VACUOLES 1+
[2019-10-07] MEDS ORDERED: ALBUMIN HUMAN 25% 50 ML IV PRN (11:00)
[2019-10-07 17:21] LABS: MEAN CORPUSCULAR HGB CONC 33.8 g/dL (33.2-36.2); MEAN CORPUSCULAR VOLUME 91.7 fL (81-97); MEAN PLATELET VOLUME 9.7 fL (7.4-10.4); PLATELET COUNT 66 x10^3/uL (130-400); RED CELL DISTRIBUTION WIDTH 16.1 % (9.4-14.8)
[2019-10-07 17:28] LABS: ALANINE AMINOTRANSFERASE 524 U/L (12-78); ALBUMIN 2.1 g/dL (3.4-5.0); ANION GAP 7 mmol/L (5-15); CHLORIDE 102 mmol/L (98-107); CREATININE 2.98 mg/dL (0.7-1.3)
[2019-10-07 17:30] LABS: ALKALINE PHOSPHATASE 58 U/L (45-117); BILIRUBIN,TOTAL 2.8 mg/dL (0.2-1.0); TOTAL PROTEIN 4.6 g/dL (6.4-8.2)
[2019-10-07 18:05] LABS: MD YES
[2019-10-07 18:12] LABS: BAND#(MANUAL) 3.07 x10^3/uL; BANDS%(MANUAL) 26 % (0-7); LYMPH#(MANUAL) 0.71 x10^3/uL (1-3.4); LYMPHS% (MANUAL) 6 % (22-44); MONOS#(MANUAL) 0.94 x10^3/uL (0.3-2.7); MONOS% (MANUAL) 8 % (2-9); SEG#(MANUAL) 7.08 x10^3/uL (1.8-6.8); SEGS% (MANUAL) 60 % (42-75)
[2019-10-07 18:14] LABS: <PLATELET ESTIMATE> DECREASED; ANISOCYTOSIS 1+
[2019-10-07 18:15] LABS: <PLT MORPHOLOGY> NORMAL PLT MORPH
[2019-10-07] MEDS: AMIODARONE 450 MG in DEXTROSE 5% 241 ML IV PRN (21:20)
[2019-10-07 22:24] LABS: ALANINE AMINOTRANSFERASE 500 U/L (12-78); ALBUMIN 2.2 g/dL (3.4-5.0); ANION GAP 7 mmol/L (5-15); CALCIUM 9.4 mg/dL (8.5-10.1); CHLORIDE 102 mmol/L (98-107); CREATININE 3.44 mg/dL (0.7-1.3)
[2019-10-07 22:26] LABS: ALKALINE PHOSPHATASE 60 U/L (45-117); BILIRUBIN,TOTAL 3.2 mg/dL (0.2-1.0); TOTAL PROTEIN 4.7 g/dL (6.4-8.2)
[2019-10-07 23:02] LABS: MD YES; MEAN CORPUSCULAR HEMOGLOBIN 31.1 pg (27.5-34.5); MEAN CORPUSCULAR HGB CONC 34.2 g/dL (33.2-36.2); MEAN PLATELET VOLUME 9.9 fL (7.4-10.4); PLATELET COUNT 67 x10^3/uL (130-400); RED BLOOD COUNT 3.45 x10^6/uL (4.38-5.82); RED CELL DISTRIBUTION WIDTH 16.3 % (9.4-14.8)
[2019-10-07 23:07] LABS: BAND#(MANUAL) 2.32 x10^3/uL; BANDS%(MANUAL) 18 % (0-7); LYMPH#(MANUAL) 0.65 x10^3/uL (1-3.4); LYMPHS% (MANUAL) 5 % (22-44); MONOS#(MANUAL) 0.13 x10^3/uL (0.3-2.7); MONOS% (MANUAL) 1 % (2-9); SEGS% (MANUAL) 76 % (42-75)
[2019-10-07 23:08] LABS: <PLATELET ESTIMATE> DECREASED; <PLT MORPHOLOGY> NORMAL PLT MORPH; ANISOCYTOSIS 1+
[2019-10-08] MEDS: HYDROCORTISONE 100 MG INJ. IVPush SCH ×3 (00:30→17:45)
[2019-10-08] MEDS: INSULIN LISPRO 100 UNITS/ML, PEN MEDIUM DOSE SS SQ-INSULIN SCH ×2 (02:00→06:00)
[2019-10-08 02:26] LABS: MEAN CORPUSCULAR HEMOGLOBIN 31.1 pg (27.5-34.5); MEAN CORPUSCULAR VOLUME 91.7 fL (81-97); MEAN PLATELET VOLUME 9.7 fL (7.4-10.4); PLATELET COUNT 69 x10^3/uL (130-400); RED CELL DISTRIBUTION WIDTH 16.2 % (9.4-14.8)
[2019-10-08 02:36] LABS: ALANINE AMINOTRANSFERASE 474 U/L (12-78); ALBUMIN 2.2 g/dL (3.4-5.0); ANION GAP 9 mmol/L (5-15); CALCIUM 9.2 mg/dL (8.5-10.1); CHLORIDE 101 mmol/L (98-107); CREATININE 3.79 mg/dL (0.7-1.3)
[2019-10-08 02:38] LABS: ALKALINE PHOSPHATASE 66 U/L (45-117); BILIRUBIN,TOTAL 3.7 mg/dL (0.2-1.0); TOTAL PROTEIN 4.8 g/dL (6.4-8.2)
[2019-10-08 02:50] LABS: MD YES
[2019-10-08 02:52] LABS: <PLATELET ESTIMATE> DECREASED; <PLT MORPHOLOGY> NORMAL PLT MORPH; <RBC MORPHOLOGY> NORMAL; BAND#(MANUAL) 1.06 x10^3/uL; BANDS%(MANUAL) 8 % (0-7); LYMPH#(MANUAL) 0.79 x10^3/uL (1-3.4); LYMPHS% (MANUAL) 6 % (22-44); METAMYELOCYTES# (MANUAL) 0.13 x10^3/uL (0-0); METAMYELOCYTES% (MANUAL) 1 % (0-1); MONOS#(MANUAL) 0.13 x10^3/uL (0.3-2.7); MONOS% (MANUAL) 1 % (2-9); SEG#(MANUAL) 11.09 x10^3/uL (1.8-6.8); SEGS% (MANUAL) 84 % (42-75)
[2019-10-08] MEDS: PIPERACILLIN/TAZO/PMX 2.25GM 50 ML IVPB SCH ×3 (06:34→21:45)
[2019-10-08 06:54] LABS: MEAN CORPUSCULAR HEMOGLOBIN 31.9 pg (27.5-34.5); MEAN CORPUSCULAR HGB CONC 34.6 g/dL (33.2-36.2); RED CELL DISTRIBUTION WIDTH 15.8 % (9.4-14.8)
[2019-10-08 07:03] LABS: ALANINE AMINOTRANSFERASE 422 U/L (12-78); ALBUMIN 2.1 g/dL (3.4-5.0); ANION GAP 7 mmol/L (5-15); CALCIUM 9.1 mg/dL (8.5-10.1); CHLORIDE 101 mmol/L (98-107); CREATININE 4.16 mg/dL (0.7-1.3); TRIGLYCERIDES 127 mg/dL (50-200)
[2019-10-08 07:05] LABS: ALKALINE PHOSPHATASE 64 U/L (45-117); BILIRUBIN,TOTAL 3.7 mg/dL (0.2-1.0); TOTAL PROTEIN 4.6 g/dL (6.4-8.2); VANCOMYCIN,RANDOM 14.3 mcg/mL
[2019-10-08 07:53] LABS: MEAN PLATELET VOLUME 9.2 fL (7.4-10.4); PLATELET COUNT 71 x10^3/uL (130-400)
[2019-10-08 07:54] LABS: MD YES
[2019-10-08 07:56] LABS: BAND#(MANUAL) 0.79 x10^3/uL; BANDS%(MANUAL) 6 % (0-7); LYMPH#(MANUAL) 0.92 x10^3/uL (1-3.4); LYMPHS% (MANUAL) 7 % (22-44); METAMYELOCYTES# (MANUAL) 0.13 x10^3/uL (0-0); METAMYELOCYTES% (MANUAL) 1 % (0-1); MONOS#(MANUAL) 0.52 x10^3/uL (0.3-2.7); MONOS% (MANUAL) 4 % (2-9); SEG#(MANUAL) 10.74 x10^3/uL (1.8-6.8); SEGS% (MANUAL) 82 % (42-75)
[2019-10-08 07:59] LABS: <PLATELET ESTIMATE> DECREASED; <PLT MORPHOLOGY> NORMAL PLT MORPH; NRBC % (MANUAL) 1 % (0-1); PMNS WITH VACUOLES 1+
[2019-10-08] MEDS: POLYETHYLENE GLYCOL 17 GM PACKET PO SCH (09:00)
[2019-10-08] MEDS: PANTOPRAZOLE 40 MG IV IV SCH (09:42)
[2019-10-08] MEDS: HEPARIN 5,000 UNITS/ML, 1ML SQ SCH ×3 (09:42→21:00)
[2019-10-08] MEDS ORDERED: VANCOMYCIN 1,300 MG in SODIUM CHLORIDE 0.9% 250 ML IV ONE (11:00)
[2019-10-08] MEDS: AMIODARONE 450 MG in DEXTROSE 5% 241 ML IV PRN (11:34)
[2019-10-08] MEDS: FILTER 0.22 MICRON FOR AMIODARONE IV PRN (11:34)
[2019-10-08] MEDS ORDERED: MIDAZOLAM 10MG/2 ML ONE (12:26)
[2019-10-08] MEDS ORDERED: FENTANYL PF 250 MCG/5ML ONE (12:26)
[2019-10-08] MEDS: FENTANYL PF 1,000 MCG in SODIUM CHLORIDE 0.9% 80 ML IV PRN (12:45)
[2019-10-08] MEDS ORDERED: CEFAZOLIN PMX 1GM/50ML 50 ML ONE (13:43)
[2019-10-08] MEDS ORDERED: CEFAZOLIN 1,000 MG IVPB ONE (14:31)
[2019-10-08] MEDS ORDERED: NEOSPORIN OINT, 15GM ONE (16:10)
[2019-10-08] MEDS ORDERED: NEOSPORIN OINT, 15GM TP ONE (16:20)
[2019-10-08 17:58] LABS: ALANINE AMINOTRANSFERASE 330 U/L (12-78); ALBUMIN 1.9 g/dL (3.4-5.0); ANION GAP 10 mmol/L (5-15); CALCIUM 8.9 mg/dL (8.5-10.1); CHLORIDE 103 mmol/L (98-107); CREATININE 4.63 mg/dL (0.7-1.3)
[2019-10-08 18:01] LABS: ALKALINE PHOSPHATASE 63 U/L (45-117); BILIRUBIN,TOTAL 4.3 mg/dL (0.2-1.0); TOTAL PROTEIN 4.5 g/dL (6.4-8.2)
[2019-10-08] MEDS: INSULIN LISPRO 100 UNITS/ML, PEN SQ-INSULIN SCH ×2 (18:04→22:51)
[2019-10-09] MEDS: HYDROCORTISONE 100 MG INJ. IVPush SCH ×3 (01:02→17:20)
[2019-10-09] MEDS: AMIODARONE 450 MG in DEXTROSE 5% 241 ML IV PRN ×2 (01:03→19:46)
[2019-10-09] MEDS: FENTANYL PF 1,000 MCG in SODIUM CHLORIDE 0.9% 80 ML IV PRN (02:18)
[2019-10-09] MEDS: INSULIN LISPRO 100 UNITS/ML, PEN SQ-INSULIN SCH ×4 (05:00→21:13)
[2019-10-09] MEDS: PIPERACILLIN/TAZO/PMX 2.25GM 50 ML IVPB SCH ×3 (05:36→21:09)
[2019-10-09 05:46] LABS: MEAN CORPUSCULAR HEMOGLOBIN 30.9 pg (27.5-34.5); MEAN CORPUSCULAR HGB CONC 33.5 g/dL (33.2-36.2); MEAN CORPUSCULAR VOLUME 92.2 fL (81-97); MEAN PLATELET VOLUME 9.5 fL (7.4-10.4); PLATELET COUNT 78 x10^3/uL (130-400); RED BLOOD COUNT 3.16 x10^6/uL (4.38-5.82); RED CELL DISTRIBUTION WIDTH 15.9 % (9.4-14.8)
[2019-10-09 05:47] LABS: ALANINE AMINOTRANSFERASE 256 U/L (12-78); ALBUMIN 1.8 g/dL (3.4-5.0); ANION GAP 10 mmol/L (5-15); CALCIUM 8.5 mg/dL (8.5-10.1); CHLORIDE 102 mmol/L (98-107); CREATININE 5.41 mg/dL (0.7-1.3); TRIGLYCERIDES 151 mg/dL (50-200)
[2019-10-09 05:52] LABS: ALKALINE PHOSPHATASE 71 U/L (45-117); BILIRUBIN,TOTAL 5.1 mg/dL (0.2-1.0); TOTAL PROTEIN 4.3 g/dL (6.4-8.2)
[2019-10-09 05:59] LABS: MD YES
[2019-10-09 06:00] LABS: ANISOCYTOSIS 1+; BAND#(MANUAL) 0.56 x10^3/uL; BANDS%(MANUAL) 5 % (0-7); LYMPH#(MANUAL) 0.67 x10^3/uL (1-3.4); LYMPHS% (MANUAL) 6 % (22-44); MONOS#(MANUAL) 0.11 x10^3/uL (0.3-2.7); MONOS% (MANUAL) 1 % (2-9); SEG#(MANUAL) 9.86 x10^3/uL (1.8-6.8); SEGS% (MANUAL) 88 % (42-75)
[2019-10-09 06:01] LABS: ECHINOCYTES 1+; OVALOCYTES 1+
[2019-10-09 06:02] LABS: <PLATELET ESTIMATE> DECREASED; <PLT MORPHOLOGY> NORMAL PLT MORPH
[2019-10-09] MEDS: PANTOPRAZOLE 40 MG IV IV SCH (10:35)
[2019-10-09] MEDS: HEPARIN 5,000 UNITS/ML, 1ML SQ SCH ×3 (10:36→21:09)
[2019-10-09] MEDS: POLYETHYLENE GLYCOL 17 GM PACKET PO SCH (10:37)
[2019-10-09] MEDS: ARANESP 40 MCG/ML **ESRD SQ SCH (10:37)
[2019-10-09 10:38] LABS: INTERNATIONAL NORMALIZED RATIO 1.07 (0.93-1.1); PROTHROMBIN TIME 11.3 Seconds (9.6-11.5)
[2019-10-09] MEDS: hydrALAzine 20 MG/ML, 1ML IVPush PRN (13:12)
[2019-10-09] MEDS: DEXMEDETOMIDINE 400 MCG in SODIUM CHLORIDE 0.9% 96 ML IV PRN ×3 (13:33→22:23)
[2019-10-09] MEDS: morphine SULFATE 10 MG/ML, 1ML IVPush PRN ×3 (14:25→23:21)
[2019-10-09] MEDS ORDERED: FAT EMUL IV SCH (17:00)
[2019-10-09] MEDS ORDERED: DEXTROSE 50%, 50ML SYRINGE IVPush PRN (17:00)
[2019-10-09] MEDS ORDERED: TPN PER PHARMACY MC SCH (17:00)
[2019-10-09] MEDS ORDERED: DEXTROSE 70% IV SCH (17:00)
[2019-10-09] MEDS ORDERED: SMOF TPN IV SCH (17:00)
[2019-10-09] MEDS ORDERED: [UNRECOGNIZED DRUG - OTHER] IV SCH (17:00)
[2019-10-09] MEDS ORDERED: DEXTROSE 10% 500 ML IV PRN (17:00)
[2019-10-09] MEDS ORDERED: AMINO ACID 10% IV SCH (17:00)
[2019-10-09] MEDS: FILTER, DISP 1.2 MICRON FOR TPN/PVN IV PRN (17:05)
[2019-10-09] MEDS: FENTANYL PF 100 MCG/2ML IVPush PRN (18:11)
[2019-10-10] MEDS: HYDROCORTISONE 100 MG INJ. IVPush SCH ×4 (01:14→23:59)
[2019-10-10] MEDS: DEXMEDETOMIDINE 400 MCG in SODIUM CHLORIDE 0.9% 96 ML IV PRN ×7 (01:23→23:49)
[2019-10-10] MEDS: morphine SULFATE 10 MG/ML, 1ML IVPush PRN ×4 (02:39→19:58)
[2019-10-10 05:00] LABS: CHLORIDE 103 mmol/L (98-107)
[2019-10-10] MEDS: INSULIN LISPRO 100 UNITS/ML, PEN SQ-INSULIN SCH ×4 (05:00→23:28)
[2019-10-10] MEDS: PIPERACILLIN/TAZO/PMX 2.25GM 50 ML IVPB SCH (05:18)
[2019-10-10 05:23] LABS: % IRON SATURATION 91 % (20-55); ANION GAP 8 mmol/L (5-15); CREATININE 4.21 mg/dL (0.7-1.3); IRON LEVEL 146 mcg/dL (65-175); TOTAL IRON BINDING CAPACITY 160 mcg/dL (250-450); VANCOMYCIN,RANDOM 20.4 mcg/mL
[2019-10-10 06:28] LABS: MD YES; MEAN CORPUSCULAR HEMOGLOBIN 30.6 pg (27.5-34.5); MEAN CORPUSCULAR HGB CONC 33.1 g/dL (33.2-36.2); MEAN CORPUSCULAR VOLUME 92.4 fL (81-97); MEAN PLATELET VOLUME 10.4 fL (7.4-10.4); PLATELET COUNT 91 x10^3/uL (130-400); RED BLOOD COUNT 3.62 x10^6/uL (4.38-5.82); RED CELL DISTRIBUTION WIDTH 15.4 % (9.4-14.8)
[2019-10-10 06:30] LABS: BAND#(MANUAL) 0.29 x10^3/uL; BANDS%(MANUAL) 3 % (0-7); METAMYELOCYTES# (MANUAL) 0.29 x10^3/uL (0-0); METAMYELOCYTES% (MANUAL) 3 % (0-1); MONOS#(MANUAL) 0.67 x10^3/uL (0.3-2.7); MONOS% (MANUAL) 7 % (2-9); MYELOCYTES% (MANUAL) 1 % (0-0); SEG#(MANUAL) 7.39 x10^3/uL (1.8-6.8); SEGS% (MANUAL) 77 % (42-75)
[2019-10-10 06:31] LABS: ANISOCYTOSIS 1+; LYMPH#(MANUAL) 0.86 x10^3/uL (1-3.4); LYMPHS% (MANUAL) 9 % (22-44); TEAR DROPS 1+
[2019-10-10 06:32] LABS: <PLATELET ESTIMATE> DECREASED; ECHINOCYTES 1+; LARGE PLATELETS 1+; OVALOCYTES 1+
[2019-10-10] MEDS: PANTOPRAZOLE 40 MG IV IV SCH (09:26)
[2019-10-10] MEDS: HEPARIN 5,000 UNITS/ML, 1ML SQ SCH ×3 (09:26→21:37)
[2019-10-10] MEDS: POLYETHYLENE GLYCOL 17 GM PACKET PO SCH (09:26)
[2019-10-10] MEDS ORDERED: BUPIVACAINE LIPOSOME/PF 10ML INFIL ONE (10:00)
[2019-10-10] MEDS: hydrALAzine 20 MG/ML, 1ML IVPush PRN ×2 (10:51→19:44)
[2019-10-10] MEDS: CEFTRIAXONE PMX 2GM/50ML 50 ML IVPB SCH (11:46)
[2019-10-10] MEDS: AMIODARONE 200 MG TABLET PO SCH ×2 (12:44→21:35)
[2019-10-10] MEDS ORDERED: LABETALOL 5MG/ML, 20ML IVPush ONE (12:55)
[2019-10-10] MEDS ORDERED: LABETALOL 5MG/ML, 20ML IVPush PRN (16:00)
[2019-10-10] MEDS ORDERED: FAT EMUL IV SCH (17:00)
[2019-10-10] MEDS ORDERED: SMOF TPN IV SCH (17:00)
[2019-10-10] MEDS ORDERED: [UNRECOGNIZED DRUG - OTHER] IV SCH (17:00)
[2019-10-10] MEDS ORDERED: AMINO ACID 10% IV SCH (17:00)
[2019-10-10] MEDS ORDERED: DEXTROSE 70% IV SCH (17:00)
[2019-10-10] MEDS: FILTER, DISP 1.2 MICRON FOR TPN/PVN IV PRN (17:44)
[2019-10-10] MEDS: OXYcodone 5 MG/5 ML ORAL.SOL UDC PO PRN (21:52)
[2019-10-10] MEDS: FENTANYL PF 100 MCG/2ML IVPush PRN (21:53)
[2019-10-10] MEDS: PROPOFOL 100 ML IV PRN ×2 (23:05→23:17)
[2019-10-11] MEDS: LABETALOL 5MG/ML, 20ML IVPush PRN ×2 (00:03→11:56)
[2019-10-11] MEDS: morphine SULFATE 10 MG/ML, 1ML IVPush PRN ×2 (00:24→20:13)
[2019-10-11] MEDS: hydrALAzine 20 MG/ML, 1ML IVPush PRN (00:24)
[2019-10-11] MEDS: PROPOFOL 100 ML IV PRN (05:19)
[2019-10-11] MEDS ORDERED: hydrALAzine 20 MG/ML, 1ML IVPush PRN (06:00)
[2019-10-11 06:20] LABS: ANION GAP 6 mmol/L (5-15); CALCIUM 9.4 mg/dL (8.5-10.1); CHLORIDE 104 mmol/L (98-107)
[2019-10-11 06:23] LABS: CREATININE 3.89 mg/dL (0.7-1.3); TRIGLYCERIDES 333 mg/dL (50-200)
[2019-10-11] MEDS: INSULIN LISPRO 100 UNITS/ML, PEN SQ-INSULIN SCH ×4 (06:35→22:22)
[2019-10-11 07:00] LABS: MEAN CORPUSCULAR HEMOGLOBIN 30.8 pg (27.5-34.5); MEAN CORPUSCULAR HGB CONC 33.1 g/dL (33.2-36.2); MEAN CORPUSCULAR VOLUME 93.2 fL (81-97); MEAN PLATELET VOLUME 10.3 fL (7.4-10.4); PLATELET COUNT 141 x10^3/uL (130-400); RED BLOOD COUNT 3.59 x10^6/uL (4.38-5.82); RED CELL DISTRIBUTION WIDTH 15.4 % (9.4-14.8)
[2019-10-11 07:45] LABS: MD YES
[2019-10-11 07:47] LABS: ANISOCYTOSIS 1+; BAND#(MANUAL) 0.74 x10^3/uL; BANDS%(MANUAL) 6 % (0-7); LYMPH#(MANUAL) 0.74 x10^3/uL (1-3.4); LYMPHS% (MANUAL) 6 % (22-44); METAMYELOCYTES# (MANUAL) 0.62 x10^3/uL (0-0); METAMYELOCYTES% (MANUAL) 5 % (0-1); MONOS#(MANUAL) 0.62 x10^3/uL (0.3-2.7); MONOS% (MANUAL) 5 % (2-9); MYELOCYTES# (MANUAL) 0.25 x10^3/uL (0-0); MYELOCYTES% (MANUAL) 2 % (0-0); NRBC % (MANUAL) 1 % (0-1); POLYCHROMASIA 1+; SEG#(MANUAL) 9.35 x10^3/uL (1.8-6.8); SEGS% (MANUAL) 76 % (42-75)
[2019-10-11 07:48] LABS: <PLATELET ESTIMATE> ADEQUATE; LARGE PLATELETS 1+
[2019-10-11] MEDS ORDERED: METOPROLOL TARTRATE 25 MG TAB PO SCH (09:30)
[2019-10-11] MEDS ORDERED: FILTER 0.22 MICRON IV ONE (09:30)
[2019-10-11] MEDS ORDERED: AMIODARONE 150 MG in DEXTROSE 5% 100 ML IV ONE (09:30)
[2019-10-11] MEDS: PANTOPRAZOLE 40 MG IV IV SCH (09:33)
[2019-10-11] MEDS: AMIODARONE 200 MG TABLET PO SCH ×2 (09:35→19:38)
[2019-10-11] MEDS: HYDROCORTISONE 100 MG INJ. IVPush SCH ×2 (09:38→13:31)
[2019-10-11] MEDS: POLYETHYLENE GLYCOL 17 GM PACKET PO SCH (09:39)
[2019-10-11] MEDS: CARVEDILOL 12.5 MG TABLET PO SCH ×2 (11:09→17:41)
[2019-10-11] MEDS: CEFTRIAXONE PMX 2GM/50ML 50 ML IVPB SCH (13:31)
[2019-10-11] MEDS: FENTANYL PF 100 MCG/2ML IVPush PRN (13:33)
[2019-10-11] MEDS ORDERED: DEXTROSE 70% IV SCH (17:00)
[2019-10-11] MEDS ORDERED: [UNRECOGNIZED DRUG - OTHER] IV SCH (17:00)
[2019-10-11] MEDS ORDERED: STERILE WATER IV SCH (17:00)
[2019-10-11] MEDS ORDERED: AMINO ACID 10% IV SCH (17:00)
[2019-10-11] MEDS: FILTER, DISP 1.2 MICRON FOR TPN/PVN IV PRN (17:41)
[2019-10-11] MEDS: HEPARIN 25,000 UNITS/250ML PMX 250 ML IV PRN (22:41)
[2019-10-12] MEDS: morphine SULFATE 10 MG/ML, 1ML IVPush PRN ×2 (00:01→03:40)
[2019-10-12] MEDS: DEXMEDETOMIDINE 400 MCG in SODIUM CHLORIDE 0.9% 96 ML IV PRN (00:02)
[2019-10-12] MEDS: HYDROCORTISONE 100 MG INJ. IVPush SCH ×2 (00:58→08:51)
[2019-10-12 04:56] LABS: MEAN CORPUSCULAR HEMOGLOBIN 30.9 pg (27.5-34.5); MEAN CORPUSCULAR HGB CONC 33.6 g/dL (33.2-36.2); MEAN CORPUSCULAR VOLUME 92.1 fL (81-97); MEAN PLATELET VOLUME 10.2 fL (7.4-10.4); PLATELET COUNT 168 x10^3/uL (130-400); RED BLOOD COUNT 3.26 x10^6/uL (4.38-5.82); RED CELL DISTRIBUTION WIDTH 15.8 % (9.4-14.8)
[2019-10-12 05:05] LABS: ANION GAP 10 mmol/L (5-15); CALCIUM 9.2 mg/dL (8.5-10.1); CHLORIDE 103 mmol/L (98-107); CREATININE 5.04 mg/dL (0.7-1.3)
[2019-10-12 05:24] LABS: MD YES
[2019-10-12 05:27] LABS: ANISOCYTOSIS 1+; BAND#(MANUAL) 0.14 x10^3/uL; BANDS%(MANUAL) 1 % (0-7); LYMPHS% (MANUAL) 14 % (22-44); METAMYELOCYTES# (MANUAL) 0.86 x10^3/uL (0-0); METAMYELOCYTES% (MANUAL) 6 % (0-1); MONOS#(MANUAL) 0.86 x10^3/uL (0.3-2.7); MONOS% (MANUAL) 6 % (2-9); NRBC % (MANUAL) 2 % (0-1); POLYCHROMASIA 1+; SEG#(MANUAL) 10.44 x10^3/uL (1.8-6.8); SEGS% (MANUAL) 73 % (42-75)
[2019-10-12 05:28] LABS: <PLATELET ESTIMATE> ADEQUATE; LARGE PLATELETS 1+
[2019-10-12] MEDS: CARVEDILOL 12.5 MG TABLET PO SCH ×2 (06:13→17:02)
[2019-10-12] MEDS: INSULIN LISPRO 100 UNITS/ML, PEN SQ-INSULIN SCH ×4 (06:14→21:00)
[2019-10-12] MEDS: AMIODARONE 200 MG TABLET PO SCH ×2 (08:49→21:17)
[2019-10-12] MEDS: POLYETHYLENE GLYCOL 17 GM PACKET PO SCH (08:51)
[2019-10-12] MEDS: PANTOPRAZOLE 40 MG IV IV SCH (08:51)
[2019-10-12] MEDS: CEFTRIAXONE PMX 2GM/50ML 50 ML IVPB SCH (12:35)
[2019-10-12] MEDS ORDERED: HYDROCORTISONE 100 MG INJ. IVPush SCH (13:30)
[2019-10-12] MEDS ORDERED: [UNRECOGNIZED DRUG - OTHER] IV SCH (17:00)
[2019-10-12] MEDS ORDERED: AMINO ACID 10% IV SCH (17:00)
[2019-10-12] MEDS ORDERED: DEXTROSE 70% IV SCH (17:00)
[2019-10-12] MEDS ORDERED: STERILE WATER IV SCH (17:00)
[2019-10-12] MEDS: OXYcodone 5 MG/5 ML ORAL.SOL UDC PO PRN (18:14)
[2019-10-13] MEDS: HEPARIN 25,000 UNITS/250ML PMX 250 ML IV PRN (00:08)
[2019-10-13] MEDS ORDERED: ALBUTEROL/IPRATROPIUM 2.5MG/0.5MG, 3 ML NPPB PRN (00:30)
[2019-10-13 04:41] LABS: MEAN CORPUSCULAR HGB CONC 33.1 g/dL (33.2-36.2); MEAN CORPUSCULAR VOLUME 93.5 fL (81-97); MEAN PLATELET VOLUME 9.8 fL (7.4-10.4); PLATELET COUNT 203 x10^3/uL (130-400); RED BLOOD COUNT 3.62 x10^6/uL (4.38-5.82); RED CELL DISTRIBUTION WIDTH 15.8 % (9.4-14.8)
[2019-10-13 04:42] LABS: ALANINE AMINOTRANSFERASE 128 U/L (12-78); ALBUMIN 1.9 g/dL (3.4-5.0); ANION GAP 7 mmol/L (5-15); CALCIUM 9.6 mg/dL (8.5-10.1); CHLORIDE 100 mmol/L (98-107)
[2019-10-13 04:45] LABS: ALKALINE PHOSPHATASE 263 U/L (45-117); BILIRUBIN,TOTAL 2.7 mg/dL (0.2-1.0); CREATININE 4.41 mg/dL (0.7-1.3); TOTAL PROTEIN 5.6 g/dL (6.4-8.2)
[2019-10-13 05:03] LABS: MD YES
[2019-10-13 05:05] LABS: <PLATELET ESTIMATE> ADEQUATE; ANISOCYTOSIS 1+; BAND#(MANUAL) 0.61 x10^3/uL; BANDS%(MANUAL) 4 % (0-7); EOS% (MANUAL) 2 % (1-7); LARGE PLATELETS 1+; LYMPH#(MANUAL) 1.67 x10^3/uL (1-3.4); LYMPHS% (MANUAL) 11 % (22-44); METAMYELOCYTES# (MANUAL) 0.15 x10^3/uL (0-0); METAMYELOCYTES% (MANUAL) 1 % (0-1); MONOS#(MANUAL) 0.91 x10^3/uL (0.3-2.7); MONOS% (MANUAL) 6 % (2-9); NRBC % (MANUAL) 2 % (0-1); POLYCHROMASIA 1+; SEG#(MANUAL) 11.55 x10^3/uL (1.8-6.8); SEGS% (MANUAL) 76 % (42-75)
[2019-10-13] MEDS: CARVEDILOL 12.5 MG TABLET PO SCH ×2 (06:09→17:52)
[2019-10-13] MEDS: INSULIN LISPRO 100 UNITS/ML, PEN SQ-INSULIN SCH ×4 (07:00→20:55)
[2019-10-13] MEDS: ONDANSETRON 2MG/ML, 2ML IVPush PRN ×2 (08:08→14:41)
[2019-10-13] MEDS: POLYETHYLENE GLYCOL 17 GM PACKET PO SCH (09:24)
[2019-10-13] MEDS: AMIODARONE 200 MG TABLET PO SCH ×2 (09:24→20:58)
[2019-10-13] MEDS: PANTOPRAZOLE 40 MG IV IV SCH (09:24)
[2019-10-13] MEDS: CEFTRIAXONE PMX 2GM/50ML 50 ML IVPB SCH (12:19)
[2019-10-13] MEDS ORDERED: ALBUMIN HUMAN 25% 100 ML IV ONE (13:30)
[2019-10-13 14:06] VITALS: BP 118/61
[2019-10-13] MEDS ORDERED: PROMETHAZINE 25 MG/ML, 1ML IM PRN (16:30)
[2019-10-13] MEDS ORDERED: DEXTROSE 50%, 50ML SYRINGE IVPush PRN (18:00)
[2019-10-13] MEDS ORDERED: GLUCAGON 1 MG IM PRN (18:00)
[2019-10-13] MEDS ORDERED: DEXTROSE 4 GM TAB.CHEW PO PRN (18:00)
[2019-10-13] MEDS: SODIUM CHLORIDE FLUSH 10ML SYR IVF SCH (20:56)
[2019-10-13 22:06] VITALS: BP 131/74
[2019-10-14 02:29] VITALS: BP 115/70
[2019-10-14 04:43] LABS: MEAN CORPUSCULAR HEMOGLOBIN 31.3 pg (27.5-34.5); MEAN CORPUSCULAR HGB CONC 33.4 g/dL (33.2-36.2); MEAN CORPUSCULAR VOLUME 93.5 fL (81-97); MEAN PLATELET VOLUME 9.8 fL (7.4-10.4); PLATELET COUNT 205 x10^3/uL (130-400); RED BLOOD COUNT 3.29 x10^6/uL (4.38-5.82); RED CELL DISTRIBUTION WIDTH 15.8 % (9.4-14.8)
[2019-10-14 04:52] LABS: ANION GAP 13 mmol/L (5-15); CALCIUM 9.7 mg/dL (8.5-10.1); CHLORIDE 99 mmol/L (98-107); CREATININE 6.05 mg/dL (0.7-1.3)
[2019-10-14 05:28] LABS: MD YES
[2019-10-14 05:30] LABS: LYMPH#(MANUAL) 1.72 x10^3/uL (1-3.4); LYMPHS% (MANUAL) 11 % (22-44); METAMYELOCYTES# (MANUAL) 0.16 x10^3/uL (0-0); METAMYELOCYTES% (MANUAL) 1 % (0-1); MONOS#(MANUAL) 1.87 x10^3/uL (0.3-2.7); MONOS% (MANUAL) 12 % (2-9); SEG#(MANUAL) 11.86 x10^3/uL (1.8-6.8); SEGS% (MANUAL) 76 % (42-75)
[2019-10-14 05:31] LABS: <PLATELET ESTIMATE> ADEQUATE; ANISOCYTOSIS 1+; POLYCHROMASIA 1+
[2019-10-14 05:32] LABS: LARGE PLATELETS 1+
[2019-10-14] MEDS: CARVEDILOL 12.5 MG TABLET PO SCH ×2 (06:18→17:08)
[2019-10-14 06:45] VITALS: BP 108/68
[2019-10-14] MEDS: INSULIN LISPRO 100 UNITS/ML, PEN SQ-INSULIN SCH ×4 (07:00→20:05)
[2019-10-14] MEDS: PANTOPRAZOLE 40 MG IV IV SCH (08:56)
[2019-10-14] MEDS: SODIUM CHLORIDE FLUSH 10ML SYR IVF SCH ×2 (08:57→20:02)
[2019-10-14] MEDS: POLYETHYLENE GLYCOL 17 GM PACKET PO SCH (09:00)
[2019-10-14] MEDS: AMIODARONE 200 MG TABLET PO SCH ×2 (09:00→20:01)
[2019-10-14] MEDS ORDERED: METOCLOPRAMIDE 5 MG/ML, 2ML IVPush PRN (13:15)
[2019-10-14] MEDS ORDERED: LEVOFLOXACIN/PMX 750MG/150ML 150 ML IV SCH (13:30)
[2019-10-14 15:54] VITALS: BP 130/71
[2019-10-14] MEDS: HEPARIN 25,000 UNITS/250ML PMX 250 ML IV PRN (17:24)
[2019-10-14 19:20] VITALS: BP 146/75
[2019-10-15 00:51] VITALS: BP 101/60
[2019-10-15 06:16] VITALS: BP 99/63
[2019-10-15] MEDS: CARVEDILOL 12.5 MG TABLET PO SCH ×2 (06:19→18:33)
[2019-10-15 06:55] VITALS: BP 93/58
[2019-10-15 07:18] LABS: MEAN CORPUSCULAR HEMOGLOBIN 31.3 pg (27.5-34.5); MEAN CORPUSCULAR VOLUME 94.9 fL (81-97); MEAN PLATELET VOLUME 9.8 fL (7.4-10.4); PLATELET COUNT 221 x10^3/uL (130-400); RED BLOOD COUNT 3.36 x10^6/uL (4.38-5.82); RED CELL DISTRIBUTION WIDTH 15.9 % (9.4-14.8)
[2019-10-15 07:30] LABS: ANION GAP 10 mmol/L (5-15); CALCIUM 9.6 mg/dL (8.5-10.1); CHLORIDE 102 mmol/L (98-107); CREATININE 4.85 mg/dL (0.7-1.3)
[2019-10-15 07:37] LABS: MD YES
[2019-10-15 07:38] LABS: <PLATELET ESTIMATE> ADEQUATE; ANISOCYTOSIS 1+; EOS#(MANUAL) 0.29 x10^3/uL (0.0-0.4); EOS% (MANUAL) 2 % (1-7); LARGE PLATELETS 1+; LYMPH#(MANUAL) 0.72 x10^3/uL (1-3.4); LYMPHS% (MANUAL) 5 % (22-44); MONOS#(MANUAL) 0.43 x10^3/uL (0.3-2.7); MONOS% (MANUAL) 3 % (2-9); POLYCHROMASIA 1+; SEG#(MANUAL) 12.96 x10^3/uL (1.8-6.8); SEGS% (MANUAL) 90 % (42-75)
[2019-10-15] MEDS: INSULIN LISPRO 100 UNITS/ML, PEN SQ-INSULIN SCH ×4 (08:20→21:00)
[2019-10-15] MEDS: PANTOPRAZOLE 40 MG IV IV SCH (08:21)
[2019-10-15] MEDS: AMIODARONE 200 MG TABLET PO SCH ×2 (08:21→21:47)
[2019-10-15] MEDS: SODIUM CHLORIDE FLUSH 10ML SYR IVF SCH ×2 (08:21→21:47)
[2019-10-15] MEDS: POLYETHYLENE GLYCOL 17 GM PACKET PO SCH (08:21)
[2019-10-15] MEDS ORDERED: AMIODARONE 150 MG in DEXTROSE 5% 100 ML IV ONE (08:30)
[2019-10-15] MEDS: FILTER 0.22 MICRON FOR AMIODARONE IV PRN (09:09)
[2019-10-15] MEDS: AMIODARONE 450 MG in DEXTROSE 5% 241 ML IV PRN ×2 (09:10→18:42)
[2019-10-15] MEDS: METOCLOPRAMIDE 5 MG/ML, 2ML IVPush SCH ×3 (10:05→21:47)
[2019-10-15 10:20] VITALS: BP 119/68
[2019-10-15] MEDS: HEPARIN 25,000 UNITS/250ML PMX 250 ML IV PRN (12:10)
[2019-10-15 13:40] VITALS: BP 132/77
[2019-10-15] MEDS ORDERED: LIDOCAINE-MPF 1%, 2ML ONE (14:13)
[2019-10-15] MEDS ORDERED: LIDOCAINE 1%, 20ML ONE (14:16)
[2019-10-16] MEDS: METOCLOPRAMIDE 5 MG/ML, 2ML IVPush SCH ×2 (03:54→10:00)
[2019-10-16 05:41] LABS: BASOPHILS % (AUTO) 0 % (0-1); EOSINOPHILS # (AUTO) 0.15 x10^3/uL (0-0.4); EOSINOPHILS % (AUTO) 1 % (1-7); LYMPHOCYTES # (AUTO) 0.86 x10^3/uL (1-3.4); LYMPHOCYTES % (AUTO) 7 % (22-44); MD NO; MEAN CORPUSCULAR HEMOGLOBIN 31.1 pg (27.5-34.5); MEAN CORPUSCULAR VOLUME 94.2 fL (81-97); MEAN PLATELET VOLUME 9.4 fL (7.4-10.4); MONOCYTES # (AUTO) 0.72 x10^3/uL (0.2-0.8); MONOCYTES % (AUTO) 6 % (2-9); NEUTROPHILS # (AUTO) 10.13 x10^3/uL (1.8-6.8); NEUTROPHILS % (AUTO) 85 % (42-75); PLATELET COUNT 220 x10^3/uL (130-400); RED BLOOD COUNT 3.16 x10^6/uL (4.38-5.82); RED CELL DISTRIBUTION WIDTH 15.7 % (9.4-14.8)
[2019-10-16 05:58] LABS: CHLORIDE 100 mmol/L (98-107)
[2019-10-16] MEDS: CARVEDILOL 12.5 MG TABLET PO SCH ×2 (06:00→17:06)
[2019-10-16 06:03] LABS: ANION GAP 12 mmol/L (5-15); CALCIUM 9.5 mg/dL (8.5-10.1); CREATININE 6.64 mg/dL (0.7-1.3)
[2019-10-16] MEDS: INSULIN LISPRO 100 UNITS/ML, PEN SQ-INSULIN SCH ×2 (07:00→11:00)
[2019-10-16] MEDS: HEPARIN 25,000 UNITS/250ML PMX 250 ML IV PRN (07:34)
[2019-10-16] MEDS: AMIODARONE 450 MG in DEXTROSE 5% 241 ML IV PRN (07:37)
[2019-10-16] MEDS: FILTER 0.22 MICRON FOR AMIODARONE IV PRN (07:48)
[2019-10-16] MEDS: SODIUM CHLORIDE FLUSH 10ML SYR IVF SCH ×2 (12:36→21:47)
[2019-10-16] MEDS: PANTOPRAZOLE 40 MG IV IV SCH (12:36)
[2019-10-16] MEDS: AMIODARONE 200 MG TABLET PO SCH ×2 (12:38→21:47)
[2019-10-16] MEDS: POLYETHYLENE GLYCOL 17 GM PACKET PO SCH (12:39)
[2019-10-16] MEDS: ARANESP 40 MCG/ML **ESRD SQ SCH (14:08)
[2019-10-16] MEDS ORDERED: LEVOFLOXACIN/PMX 500MG/100ML 100 ML IV SCH (16:30)
[2019-10-17] MEDS: HEPARIN 25,000 UNITS/250ML PMX 250 ML IV PRN ×2 (00:23→18:04)
[2019-10-17] MEDS ORDERED: NOREPINEPHRINE 8 MG in SODIUM CHLORIDE 0.9% 242 ML IV PRN (02:00)
[2019-10-17 04:23] LABS: BASOPHILS # (AUTO) 0.01 x10^3/uL (0-0.1); BASOPHILS % (AUTO) 0 % (0-1); EOSINOPHILS # (AUTO) 0.07 x10^3/uL (0-0.4); EOSINOPHILS % (AUTO) 1 % (1-7); LYMPHOCYTES # (AUTO) 0.96 x10^3/uL (1-3.4); LYMPHOCYTES % (AUTO) 8 % (22-44); MD NO; MEAN CORPUSCULAR HEMOGLOBIN 31.2 pg (27.5-34.5); MEAN CORPUSCULAR VOLUME 94.7 fL (81-97); MEAN PLATELET VOLUME 9.2 fL (7.4-10.4); MONOCYTES # (AUTO) 0.78 x10^3/uL (0.2-0.8); MONOCYTES % (AUTO) 7 % (2-9); NEUTROPHILS # (AUTO) 10.26 x10^3/uL (1.8-6.8); NEUTROPHILS % (AUTO) 85 % (42-75); PLATELET COUNT 261 x10^3/uL (130-400); RED BLOOD COUNT 3.19 x10^6/uL (4.38-5.82); RED CELL DISTRIBUTION WIDTH 16.3 % (9.4-14.8)
[2019-10-17 04:30] LABS: ANION GAP 10 mmol/L (5-15); CALCIUM 9.2 mg/dL (8.5-10.1); CHLORIDE 102 mmol/L (98-107); CREATININE 4.83 mg/dL (0.7-1.3)
[2019-10-17] MEDS: OXYcodone 5 MG/5 ML ORAL.SOL UDC PO PRN (05:14)
[2019-10-17] MEDS: CARVEDILOL 12.5 MG TABLET PO SCH (05:43)
[2019-10-17] MEDS ORDERED: ALBUMIN HUMAN 25% 100 ML IV ONE (07:30)
[2019-10-17] MEDS ORDERED: MIDODRINE 5 MG TABLET PO PRN (08:00)
[2019-10-17] MEDS: PANTOPRAZOLE 40 MG IV IV SCH (08:51)
[2019-10-17] MEDS: MIDODRINE 5 MG TABLET PO SCH ×3 (08:51→20:23)
[2019-10-17] MEDS: CEFTRIAXONE PMX 2GM/50ML 50 ML IV SCH (08:51)
[2019-10-17] MEDS: AMIODARONE 200 MG TABLET PO SCH ×2 (08:52→20:23)
[2019-10-17] MEDS: POLYETHYLENE GLYCOL 17 GM PACKET PO SCH (08:52)
[2019-10-17] MEDS: SODIUM CHLORIDE FLUSH 10ML SYR IVF SCH ×2 (08:52→20:22)
[2019-10-17] MEDS ORDERED: BISACODYL 10 MG SUPP PR PRN (09:30)
[2019-10-17] MEDS ORDERED: BISACODYL 5 MG EC TABLET PO PRN (09:30)
[2019-10-18 00:50] LABS: BASOPHILS # (AUTO) 0.04 x10^3/uL (0-0.1); BASOPHILS % (AUTO) 0 % (0-1); EOSINOPHILS % (AUTO) 2 % (1-7); LYMPHOCYTES # (AUTO) 1.08 x10^3/uL (1-3.4); LYMPHOCYTES % (AUTO) 9 % (22-44); MD NO; MEAN CORPUSCULAR HEMOGLOBIN 31.4 pg (27.5-34.5); MEAN CORPUSCULAR HGB CONC 33.2 g/dL (33.2-36.2); MEAN CORPUSCULAR VOLUME 94.8 fL (81-97); MEAN PLATELET VOLUME 9.1 fL (7.4-10.4); MONOCYTES # (AUTO) 1.02 x10^3/uL (0.2-0.8); MONOCYTES % (AUTO) 8 % (2-9); NEUTROPHILS # (AUTO) 10.36 x10^3/uL (1.8-6.8); NEUTROPHILS % (AUTO) 82 % (42-75); PLATELET COUNT 235 x10^3/uL (130-400); RED BLOOD COUNT 3.28 x10^6/uL (4.38-5.82)
[2019-10-18 00:58] LABS: ANION GAP 12 mmol/L (5-15); CALCIUM 10.1 mg/dL (8.5-10.1); CHLORIDE 101 mmol/L (98-107); CREATININE 6.24 mg/dL (0.7-1.3)
[2019-10-18] MEDS: AMIODARONE 200 MG TABLET PO SCH ×2 (08:56→20:38)
[2019-10-18] MEDS: POLYETHYLENE GLYCOL 17 GM PACKET PO SCH (08:56)
[2019-10-18] MEDS: MIDODRINE 5 MG TABLET PO SCH ×3 (08:57→20:37)
[2019-10-18] MEDS: PANTOPRAZOLE 40 MG IV IV SCH (08:57)
[2019-10-18] MEDS: SODIUM CHLORIDE FLUSH 10ML SYR IVF SCH ×2 (08:58→20:39)
[2019-10-18] MEDS: HEPARIN 25,000 UNITS/250ML PMX 250 ML IV PRN (12:22)
[2019-10-18] MEDS: CEFTRIAXONE PMX 2GM/50ML 50 ML IV SCH (14:53)
[2019-10-19 04:23] LABS: MEAN CORPUSCULAR HEMOGLOBIN 31.4 pg (27.5-34.5); MEAN CORPUSCULAR HGB CONC 32.8 g/dL (33.2-36.2); MEAN CORPUSCULAR VOLUME 95.7 fL (81-97); PLATELET COUNT 266 x10^3/uL (130-400); RED BLOOD COUNT 3.18 x10^6/uL (4.38-5.82); RED CELL DISTRIBUTION WIDTH 17.2 % (9.4-14.8)
[2019-10-19 04:33] LABS: ANION GAP 10 mmol/L (5-15); CALCIUM 9.9 mg/dL (8.5-10.1); CHLORIDE 104 mmol/L (98-107); CREATININE 5.38 mg/dL (0.7-1.3)
[2019-10-19 04:36] LABS: BASOPHILS # (AUTO) 0.12 x10^3/uL (0-0.1); BASOPHILS % (AUTO) 1 % (0-1); EOSINOPHILS # (AUTO) 0.24 x10^3/uL (0-0.4); EOSINOPHILS % (AUTO) 2 % (1-7); LYMPHOCYTES # (AUTO) 1.22 x10^3/uL (1-3.4); LYMPHOCYTES % (AUTO) 8 % (22-44); MD SCAN; MONOCYTES # (AUTO) 1.53 x10^3/uL (0.2-0.8); MONOCYTES % (AUTO) 10 % (2-9); NEUTROPHILS # (AUTO) 11.98 x10^3/uL (1.8-6.8); NEUTROPHILS % (AUTO) 79 % (42-75)
[2019-10-19] MEDS: HEPARIN 25,000 UNITS/250ML PMX 250 ML IV PRN (08:09)
[2019-10-19] MEDS: AMIODARONE 200 MG TABLET PO SCH ×2 (08:25→20:46)
[2019-10-19] MEDS: MIDODRINE 5 MG TABLET PO SCH ×3 (08:26→20:47)
[2019-10-19] MEDS: POLYETHYLENE GLYCOL 17 GM PACKET PO SCH (08:28)
[2019-10-19] MEDS: PANTOPRAZOLE 40 MG IV IV SCH (08:31)
[2019-10-19] MEDS: CEFTRIAXONE PMX 2GM/50ML 50 ML IV SCH (08:36)
[2019-10-19] MEDS: SODIUM CHLORIDE FLUSH 10ML SYR IVF SCH ×2 (08:37→20:47)
[2019-10-19 13:43] VITALS: BP 160/84
[2019-10-19 19:21] VITALS: BP 144/77
[2019-10-20 01:59] VITALS: BP 163/75
[2019-10-20 05:44] LABS: ALBUMIN 2.3 g/dL (3.4-5.0); ANION GAP 13 mmol/L (5-15); CALCIUM 10.4 mg/dL (8.5-10.1); CHLORIDE 101 mmol/L (98-107)
[2019-10-20 05:45] LABS: CREATININE 7.23 mg/dL (0.7-1.3)
[2019-10-20 05:47] LABS: BASOPHILS # (AUTO) 0.01 x10^3/uL (0-0.1); BASOPHILS % (AUTO) 0 % (0-1); EOSINOPHILS # (AUTO) 0.03 x10^3/uL (0-0.4); EOSINOPHILS % (AUTO) 0 % (1-7); LYMPHOCYTES # (AUTO) 1.24 x10^3/uL (1-3.4); LYMPHOCYTES % (AUTO) 10 % (22-44); MD NO; MEAN CORPUSCULAR HEMOGLOBIN 31.5 pg (27.5-34.5); MEAN CORPUSCULAR HGB CONC 32.6 g/dL (33.2-36.2); MEAN CORPUSCULAR VOLUME 96.5 fL (81-97); MONOCYTES # (AUTO) 1.36 x10^3/uL (0.2-0.8); MONOCYTES % (AUTO) 10 % (2-9); NEUTROPHILS # (AUTO) 10.42 x10^3/uL (1.8-6.8); NEUTROPHILS % (AUTO) 80 % (42-75); PLATELET COUNT 283 x10^3/uL (130-400); RED BLOOD COUNT 3.44 x10^6/uL (4.38-5.82); RED CELL DISTRIBUTION WIDTH 17.1 % (9.4-14.8)
[2019-10-20 07:02] VITALS: BP 175/78
[2019-10-20 07:14] VITALS: BP 149/69
[2019-10-20] MEDS: PANTOPRAZOLE 40 MG IV IV SCH (08:38)
[2019-10-20] MEDS: CEFTRIAXONE PMX 2GM/50ML 50 ML IV SCH (08:38)
[2019-10-20] MEDS: MIDODRINE 5 MG TABLET PO SCH ×3 (08:38→20:51)
[2019-10-20] MEDS: METOPROLOL TARTRATE 25 MG TAB PO SCH ×2 (08:38→18:09)
[2019-10-20] MEDS: AMIODARONE 200 MG TABLET PO SCH ×2 (08:38→20:51)
[2019-10-20] MEDS: SODIUM CHLORIDE FLUSH 10ML SYR IVF SCH ×2 (08:39→20:52)
[2019-10-20] MEDS: POLYETHYLENE GLYCOL 17 GM PACKET PO SCH (08:39)
[2019-10-20 13:09] VITALS: BP 148/78
[2019-10-20 19:19] VITALS: BP 77/47
[2019-10-20 19:30] VITALS: BP 95/63
[2019-10-21 00:08] VITALS: BP 103/67
[2019-10-21] MEDS: OXYcodone 5 MG/5 ML ORAL.SOL UDC PO PRN (00:18)
[2019-10-21 05:49] LABS: BASOPHILS # (AUTO) 0.05 x10^3/uL (0-0.1); BASOPHILS % (AUTO) 0 % (0-1); EOSINOPHILS # (AUTO) 0.02 x10^3/uL (0-0.4); EOSINOPHILS % (AUTO) 0 % (1-7); LYMPHOCYTES # (AUTO) 1.59 x10^3/uL (1-3.4); LYMPHOCYTES % (AUTO) 14 % (22-44); MD NO; MEAN CORPUSCULAR HEMOGLOBIN 31.2 pg (27.5-34.5); MEAN CORPUSCULAR HGB CONC 32.5 g/dL (33.2-36.2); MEAN CORPUSCULAR VOLUME 95.9 fL (81-97); MEAN PLATELET VOLUME 8.6 fL (7.4-10.4); MONOCYTES # (AUTO) 1.31 x10^3/uL (0.2-0.8); MONOCYTES % (AUTO) 11 % (2-9); NEUTROPHILS # (AUTO) 8.63 x10^3/uL (1.8-6.8); NEUTROPHILS % (AUTO) 74 % (42-75); PLATELET COUNT 251 x10^3/uL (130-400); RED BLOOD COUNT 3.21 x10^6/uL (4.38-5.82)
[2019-10-21 05:58] LABS: CHLORIDE 96 mmol/L (98-107)
[2019-10-21 06:02] LABS: ALBUMIN 2.2 g/dL (3.4-5.0); ANION GAP 12 mmol/L (5-15); CALCIUM 9.7 mg/dL (8.5-10.1); CREATININE 5.53 mg/dL (0.7-1.3)
[2019-10-21] MEDS: METOPROLOL TARTRATE 25 MG TAB PO SCH ×2 (06:42→18:06)
[2019-10-21] MEDS: PANTOPROZOLE 40MG TABLET PO SCH (06:42)
[2019-10-21 08:10] VITALS: BP 104/67
[2019-10-21] MEDS: CEFTRIAXONE PMX 2GM/50ML 50 ML IV SCH (10:09)
[2019-10-21] MEDS: AMIODARONE 200 MG TABLET PO SCH ×2 (10:10→20:58)
[2019-10-21] MEDS: POLYETHYLENE GLYCOL 17 GM PACKET PO SCH (10:10)
[2019-10-21] MEDS: MIDODRINE 5 MG TABLET PO SCH ×3 (10:10→20:59)
[2019-10-21] MEDS: SODIUM CHLORIDE FLUSH 10ML SYR IVF SCH ×2 (10:10→20:58)
[2019-10-21 13:35] VITALS: BP 93/56
[2019-10-21 18:05] VITALS: BP 118/78
[2019-10-21 19:10] VITALS: BP 109/64
[2019-10-21] MEDS: APIXABAN 2.5 MG TABLET PO SCH (20:58)
[2019-10-22 01:09] VITALS: BP 132/68
[2019-10-22 05:04] LABS: BASOPHILS # (AUTO) 0.15 x10^3/uL (0-0.1); BASOPHILS % (AUTO) 1 % (0-1); EOSINOPHILS # (AUTO) 0.14 x10^3/uL (0-0.4); EOSINOPHILS % (AUTO) 1 % (1-7); LYMPHOCYTES # (AUTO) 1.62 x10^3/uL (1-3.4); LYMPHOCYTES % (AUTO) 14 % (22-44); MD NO; MEAN CORPUSCULAR HEMOGLOBIN 31.2 pg (27.5-34.5); MEAN CORPUSCULAR HGB CONC 32.9 g/dL (33.2-36.2); MEAN CORPUSCULAR VOLUME 94.9 fL (81-97); MEAN PLATELET VOLUME 9.3 fL (7.4-10.4); MONOCYTES # (AUTO) 1.27 x10^3/uL (0.2-0.8); MONOCYTES % (AUTO) 11 % (2-9); NEUTROPHILS # (AUTO) 8.67 x10^3/uL (1.8-6.8); NEUTROPHILS % (AUTO) 73 % (42-75); PLATELET COUNT 267 x10^3/uL (130-400); RED BLOOD COUNT 3.44 x10^6/uL (4.38-5.82); RED CELL DISTRIBUTION WIDTH 16.4 % (9.4-14.8)
[2019-10-22 05:13] LABS: CHLORIDE 97 mmol/L (98-107)
[2019-10-22 05:17] LABS: ALBUMIN 2.4 g/dL (3.4-5.0); ANION GAP 16 mmol/L (5-15); CALCIUM 10.2 mg/dL (8.5-10.1); CREATININE 7.34 mg/dL (0.7-1.3)
[2019-10-22 06:01] VITALS: BP 129/67
[2019-10-22] MEDS: PANTOPROZOLE 40MG TABLET PO SCH (06:02)
[2019-10-22] MEDS: METOPROLOL TARTRATE 25 MG TAB PO SCH ×2 (06:02→18:13)
[2019-10-22] MEDS: CEFTRIAXONE PMX 2GM/50ML 50 ML IV SCH (07:02)
[2019-10-22 07:26] VITALS: BP 117/70
[2019-10-22] MEDS: POLYETHYLENE GLYCOL 17 GM PACKET PO SCH (07:33)
[2019-10-22] MEDS: APIXABAN 2.5 MG TABLET PO SCH ×2 (07:47→20:20)
[2019-10-22] MEDS: SODIUM CHLORIDE FLUSH 10ML SYR IVF SCH ×2 (07:47→20:21)
[2019-10-22] MEDS: AMIODARONE 200 MG TABLET PO SCH ×2 (07:47→11:00)
[2019-10-22] MEDS: MIDODRINE 5 MG TABLET PO SCH ×3 (07:47→20:21)
[2019-10-22 12:50] VITALS: BP 123/76
[2019-10-22 18:12] VITALS: BP 124/80
[2019-10-22 20:19] VITALS: BP 108/67
[2019-10-23 02:06] VITALS: BP 113/67
[2019-10-23 05:17] VITALS: BP 124/69
[2019-10-23] MEDS: PANTOPROZOLE 40MG TABLET PO SCH (05:18)
[2019-10-23] MEDS: METOPROLOL TARTRATE 25 MG TAB PO SCH ×2 (05:18→17:24)
[2019-10-23 05:35] LABS: MEAN CORPUSCULAR HEMOGLOBIN 30.3 pg (27.5-34.5); MEAN CORPUSCULAR HGB CONC 31.5 g/dL (33.2-36.2); MEAN CORPUSCULAR VOLUME 96.2 fL (81-97); MEAN PLATELET VOLUME 8.9 fL (7.4-10.4); PLATELET COUNT 242 x10^3/uL (130-400); RED BLOOD COUNT 3.34 x10^6/uL (4.38-5.82); RED CELL DISTRIBUTION WIDTH 16.5 % (9.4-14.8)
[2019-10-23 05:41] LABS: ALBUMIN 2.3 g/dL (3.4-5.0); ANION GAP 11 mmol/L (5-15); CALCIUM 9.8 mg/dL (8.5-10.1); CHLORIDE 98 mmol/L (98-107)
[2019-10-23 05:42] LABS: CREATININE 5.86 mg/dL (0.7-1.3)
[2019-10-23 06:11] LABS: MD MORPH REVIEW ONLY
[2019-10-23 06:13] LABS: BASOPHILS # (AUTO) 0.07 x10^3/uL (0-0.1); BASOPHILS % (AUTO) 1 % (0-1); EOSINOPHILS # (AUTO) 0.02 x10^3/uL (0-0.4); EOSINOPHILS % (AUTO) 0 % (1-7); LYMPHOCYTES # (AUTO) 1.65 x10^3/uL (1-3.4); LYMPHOCYTES % (AUTO) 17 % (22-44); MONOCYTES # (AUTO) 1.24 x10^3/uL (0.2-0.8); MONOCYTES % (AUTO) 13 % (2-9); NEUTROPHILS # (AUTO) 6.55 x10^3/uL (1.8-6.8); NEUTROPHILS % (AUTO) 69 % (42-75)
[2019-10-23 06:14] LABS: ANISOCYTOSIS 2+; HYPOCHROMIA 1+
[2019-10-23 06:15] LABS: POLYCHROMASIA 1+
[2019-10-23 06:17] LABS: <PLATELET ESTIMATE> ADEQUATE; <PLT MORPHOLOGY> NORMAL PLT MORPH; OVALOCYTES 1+
[2019-10-23 07:20] VITALS: BP 120/66
[2019-10-23] MEDS: POLYETHYLENE GLYCOL 17 GM PACKET PO SCH (09:00)
[2019-10-23] MEDS: CEFTRIAXONE PMX 2GM/50ML 50 ML IV SCH (09:44)
[2019-10-23] MEDS: SODIUM CHLORIDE FLUSH 10ML SYR IVF SCH ×2 (09:44→21:05)
[2019-10-23] MEDS: AMIODARONE 200 MG TABLET PO SCH (09:45)
[2019-10-23] MEDS: APIXABAN 2.5 MG TABLET PO SCH ×2 (09:45→21:04)
[2019-10-23] MEDS: MIDODRINE 5 MG TABLET PO SCH ×3 (09:45→21:04)
[2019-10-23] MEDS: [UNRECOGNIZED DRUG - REMARK] MC SCH ×2 (12:09→14:59)
[2019-10-23] MEDS ORDERED: ARANESP 40 MCG/ML **ESRD SQ SCH (14:21)
[2019-10-23 15:07] VITALS: BP 122/83
[2019-10-23] MEDS ORDERED: MIDO5TAB9 PO (16:50)
[2019-10-23] MEDS ORDERED: METO25TA35 PO (16:50)
[2019-10-23] MEDS ORDERED: AMIO200T42 PO (16:50)
[2019-10-23] MEDS ORDERED: DARB40VI SQ (16:50)
[2019-10-23] MEDS ORDERED: APIX2.5T PO (16:50)
[2019-10-23 17:24] VITALS: BP 136/77
[2019-10-23 19:24] VITALS: BP 140/68
[2019-10-24 01:51] VITALS: BP 139/75
[2019-10-24 05:50] VITALS: BP 137/78
[2019-10-24] MEDS: PANTOPROZOLE 40MG TABLET PO SCH (05:57)
[2019-10-24] MEDS: METOPROLOL TARTRATE 25 MG TAB PO SCH (05:57)
[2019-10-24 07:40] VITALS: BP 120/74
[2019-10-24] MEDS: MIDODRINE 5 MG TABLET PO SCH (08:22)
[2019-10-24] MEDS: SODIUM CHLORIDE FLUSH 10ML SYR IVF SCH (08:23)
[2019-10-24] MEDS: APIXABAN 2.5 MG TABLET PO SCH (09:00)
[2019-10-24] MEDS: POLYETHYLENE GLYCOL 17 GM PACKET PO SCH (09:00)
[2019-10-24] MEDS: AMIODARONE 200 MG TABLET PO SCH (09:00)
== END 2019-10-24 16:00 | DRG 163 ==
LOC: ED 19:27 → EDIP 20:44 → 5SO 22:20 → CCU 10-05 13:30 → 5SO 10-13 22:00 → CCU 10-15 14:06 → 5SO 10-19 13:54
PROVIDERS: ADMIT Family Medicine; ATTEND Internal Medicine
PROC: 5A12012 Performance of Cardiac Output, Single, Manual (ICD-10-PCS; principal; 2019-10-04)
PROC: 0W3D0ZZ Control Bleeding in Pericardial Cavity, Open Approach (ICD-10-PCS; 2019-10-04)
PROC: 0BH17EZ Insertion of Endotracheal Airway into Trachea, Via Natural or Artificial Opening (ICD-10-PCS; 2019-10-04)
PROC: 5A2204Z Restoration of Cardiac Rhythm, Single (ICD-10-PCS; 2019-10-05)
PROC: 5A02210 Assistance with Cardiac Output using Balloon Pump, Continuous (ICD-10-PCS; 2019-10-05)
PROC: 0WQ80ZZ Repair Chest Wall, Open Approach (ICD-10-PCS; 2019-10-05)
PROC: 0W9D00Z Drainage of Pericardial Cavity with Drainage Device, Open Approach (ICD-10-PCS; 2019-10-05)
PROC: 03HY32Z Insertion of Monitoring Device into Upper Artery, Percutaneous Approach (ICD-10-PCS; 2019-10-05)
PROC: 30233R1 Transfusion of Nonautologous Platelets into Peripheral Vein, Percutaneous Approach (ICD-10-PCS; 2019-10-05)
PROC: 30233N1 Transfusion of Nonautologous Red Blood Cells into Peripheral Vein, Percutaneous Approach (ICD-10-PCS; 2019-10-05)
PROC: 5A1955Z Respiratory Ventilation, Greater than 96 Consecutive Hours (ICD-10-PCS; 2019-10-05)
PROC: 0BJ08ZZ Inspection of Tracheobronchial Tree, Via Natural or Artificial Opening Endoscopic (ICD-10-PCS; 2019-10-06)
PROC: 0WP8X0Z Removal of Drainage Device from Chest Wall, External Approach (ICD-10-PCS; 2019-10-06)
PROC: 5A1D70Z Performance of Urinary Filtration, Intermittent, Less than 6 Hours Per Day (ICD-10-PCS; 2019-10-06)
PROC: 5A1D70Z Performance of Urinary Filtration, Intermittent, Less than 6 Hours Per Day (ICD-10-PCS; 2019-10-07)
PROC: 0WU80JZ Supplement Chest Wall with Synthetic Substitute, Open Approach (ICD-10-PCS; 2019-10-08)
PROC: 03HY32Z Insertion of Monitoring Device into Upper Artery, Percutaneous Approach (ICD-10-PCS; 2019-10-08)
PROC: 5A1D70Z Performance of Urinary Filtration, Intermittent, Less than 6 Hours Per Day (ICD-10-PCS; 2019-10-09)
PROC: 5A1D70Z Performance of Urinary Filtration, Intermittent, Less than 6 Hours Per Day (ICD-10-PCS; 2019-10-11)
PROC: 5A1D70Z Performance of Urinary Filtration, Intermittent, Less than 6 Hours Per Day (ICD-10-PCS; 2019-10-12)
PROC: B246ZZ4 Ultrasonography of Right and Left Heart, Transesophageal (ICD-10-PCS; 2019-10-13)
PROC: 5A1D70Z Performance of Urinary Filtration, Intermittent, Less than 6 Hours Per Day (ICD-10-PCS; 2019-10-14)
PROC: 03HY32Z Insertion of Monitoring Device into Upper Artery, Percutaneous Approach (ICD-10-PCS; 2019-10-15)
PROC: 0W9B30Z Drainage of Left Pleural Cavity with Drainage Device, Percutaneous Approach (ICD-10-PCS; 2019-10-15)
PROC: 5A1D70Z Performance of Urinary Filtration, Intermittent, Less than 6 Hours Per Day (ICD-10-PCS; 2019-10-16)
PROC: 5A1D70Z Performance of Urinary Filtration, Intermittent, Less than 6 Hours Per Day (ICD-10-PCS; 2019-10-18)
PROC: 5A1D70Z Performance of Urinary Filtration, Intermittent, Less than 6 Hours Per Day (ICD-10-PCS; 2019-10-20)
PROC: 5A1D70Z Performance of Urinary Filtration, Intermittent, Less than 6 Hours Per Day (ICD-10-PCS; 2019-10-22)
PROC: 5A1D70Z Performance of Urinary Filtration, Intermittent, Less than 6 Hours Per Day (ICD-10-PCS; 2019-10-24)
DX: J96.01 Acute respiratory failure with hypoxia (principal); A41.9 Sepsis, unspecified organism; N18.6 End stage renal disease; J69.0 Pneumonitis due to inhalation of food and vomit; G93.41 Metabolic encephalopathy; R57.0 Cardiogenic shock; J13 Pneumonia due to Streptococcus pneumoniae; R65.21 Severe sepsis with septic shock; I49.01 Ventricular fibrillation; I31.4 Cardiac tamponade; E46 Unspecified protein-calorie malnutrition; D62 Acute posthemorrhagic anemia; I13.2 Hypertensive heart and chronic kidney disease with heart failure and with stage 5 chronic kidney disease, or end stage renal disease; D68.69 Other thrombophilia; E27.40 Unspecified adrenocortical insufficiency; J44.0 Chronic obstructive pulmonary disease with (acute) lower respiratory infection; J44.1 Chronic obstructive pulmonary disease with (acute) exacerbation; K56.7 Ileus, unspecified; E87.1 Hypo-osmolality and hyponatremia; J95.811 Postprocedural pneumothorax; I31.3 Pericardial effusion (noninflammatory); I31.2 Hemopericardium, not elsewhere classified; I47.2 Ventricular tachycardia; I48.92 Unspecified atrial flutter; I48.20 Chronic atrial fibrillation, unspecified; E87.5 Hyperkalemia; Z99.2 Dependence on renal dialysis; I48.0 Paroxysmal atrial fibrillation; F31.9 Bipolar disorder, unspecified; D63.1 Anemia in chronic kidney disease; D69.6 Thrombocytopenia, unspecified; E11.22 Type 2 diabetes mellitus with diabetic chronic kidney disease; E78.5 Hyperlipidemia, unspecified; E83.52 Hypercalcemia; F17.200 Nicotine dependence, unspecified, uncomplicated; G89.29 Other chronic pain; F41.9 Anxiety disorder, unspecified; K21.9 Gastro-esophageal reflux disease without esophagitis; M10.9 Gout, unspecified; R04.0 Epistaxis; Z66 Do not resuscitate; I25.10 Atherosclerotic heart disease of native coronary artery without angina pectoris; I25.2 Old myocardial infarction; Z82.49 Family history of ischemic heart disease and other diseases of the circulatory system; Z86.73 Personal history of transient ischemic attack (TIA), and cerebral infarction without residual deficits; Z95.5 Presence of coronary angioplasty implant and graft; Z79.899 Other long term (current) drug therapy; X58.XXXA Exposure to other specified factors, initial encounter; Y93.89 Activity, other specified; Y92.89 Other specified places as the place of occurrence of the external cause; Y99.8 Other external cause status; Y84.8 Other medical procedures as the cause of abnormal reaction of the patient, or of later complication, without mention of misadventure at the time of the procedure
CPT/HCPCS: 31500; 33010; 36415; 36430; 36600; 71045; 74018; 74230; 76604; 76930; 78452; 80048; 80053; 80061; 80069; 80202; 82306; 82330; 82728; 82803; 82947; 82962; 83540; 83550; 83735; 83880; 83970; 84100; 84132; 84134; 84145; 84295; 84478; 84484; 85014; 85018; 85025; 85347; 85520; 85610; 86140; 86704; 86706; 86850; 86900; 86923; 87070; 87081; 87184; 87205; 87340; 87400; 90935; 92950; 92960; 93005; 93017; 93306; 93308; 93312; 93321; 93325; 94002; 94003; 94150; 94640; 95819; 99292; C1713; C1729; G0378; J0153; J0171; J0610; J0690; J0696; J0882; J1644; J1815; J1956; J2250; J2405; J2543; J2550; J2704; J2785; J3010; J3370; J3411; J3475; J3480; J7060; P9045; P9047; A9502; C1750; C1760; C9113; J0282; J0360; J1720; J2270; J2370; J2765; J3420; J7050; P9016; P9017; P9035; Q9967

== ENCOUNTER 2019-12-15 14:06 | Emergency (ER) | payer MEDICAID, MEDICARE ==
[~2019-12-15] VITALS: Ht 170.2 cm; Wt 77.0 kg
[~2019-12-15 14:06] MED LIST changes: +AMIO200T42 PO; +APIX2.5T PO; +ATOR40TA78 PO; +DARB40VI SQ; +MIDO5TAB9 PO
[2019-12-15] MEDS ORDERED: LISI-170 PO (14:43)
[2019-12-15] MEDS ORDERED: DIAZ2TAB3 PO (14:43)
[2019-12-15] MEDS ORDERED: TRAZ-175 PO (14:43)
[2019-12-15] MEDS ORDERED: SPIR25TA5 PO (14:43)
[2019-12-15] MEDS ORDERED: SODIUM CHLORIDE FLUSH 10ML SYR IVF ONE (15:00)
--- NOTE | 2019-12-15 15:04 | NUR ---
erp at bedside, pt updated on poc, no signs of distress
[2019-12-15 15:26] LABS: BASOPHILS # (AUTO) 0.05 x10^3/uL (0-0.1); BASOPHILS % (AUTO) 1 % (0-1); EOSINOPHILS # (AUTO) 0.22 x10^3/uL (0-0.4); EOSINOPHILS % (AUTO) 3 % (1-7); LYMPHOCYTES # (AUTO) 1.21 x10^3/uL (1-3.4); LYMPHOCYTES % (AUTO) 16 % (22-44); MD NO; MEAN CORPUSCULAR HEMOGLOBIN 28.6 pg (27.5-34.5); MEAN CORPUSCULAR HGB CONC 31.2 g/dL (33.2-36.2); MEAN CORPUSCULAR VOLUME 91.7 fL (81-97); MEAN PLATELET VOLUME 7.8 fL (7.4-10.4); MONOCYTES # (AUTO) 0.75 x10^3/uL (0.2-0.8); MONOCYTES % (AUTO) 10 % (2-9); NEUTROPHILS # (AUTO) 5.28 x10^3/uL (1.8-6.8); NEUTROPHILS % (AUTO) 70 % (42-75); PLATELET COUNT 149 x10^3/uL (130-400); RED BLOOD COUNT 3.54 x10^6/uL (4.38-5.82); RED CELL DISTRIBUTION WIDTH 18.7 % (9.4-14.8)
[2019-12-15 15:33] LABS: ALBUMIN 2.6 g/dL (3.4-5.0); ANION GAP 6 mmol/L (5-15); CALCIUM 9.5 mg/dL (8.5-10.1); CHLORIDE 95 mmol/L (98-107); CREATININE 4.74 mg/dL (0.7-1.3)
[2019-12-15 15:37] LABS: TROPONIN I 0.024 ng/mL (0.000-0.045)
--- NOTE | 2019-12-15 16:10 | NUR ---
pt sitting in bed, states he no longer feels sob, no signs of distress will continue to monitor.
[2019-12-15 17:12] VITALS: BP 113/67
== END 2019-12-15 17:24 | disposition home or self-care (01) ==
LOC: ED 15:30
DX: J96.10 Chronic respiratory failure, unspecified whether with hypoxia or hypercapnia (principal); I13.0 Hypertensive heart and chronic kidney disease with heart failure and stage 1 through stage 4 chronic kidney disease, or unspecified chronic kidney disease; N18.3 Chronic kidney disease, stage 3 (moderate); I50.9 Heart failure, unspecified; I48.91 Unspecified atrial fibrillation; J44.9 Chronic obstructive pulmonary disease, unspecified; I25.2 Old myocardial infarction; K21.9 Gastro-esophageal reflux disease without esophagitis; E11.22 Type 2 diabetes mellitus with diabetic chronic kidney disease; M10.9 Gout, unspecified; E78.5 Hyperlipidemia, unspecified; Z88.6 Allergy status to analgesic agent
CPT/HCPCS: 36415; 71045; 80048; 82040; 83615; 84484; 85025; 87040; 93005; 99285

== ENCOUNTER 2020-10-29 16:54 | Emergency (ER) | payer OTHER, MEDICAID ==
[~2020-10-29] VITALS: Ht 170.2 cm; Wt 75.7 kg
[~2020-10-29 16:54] MED LIST changes: +DIAZ2TAB3 PO; +LISI-170 PO; +SPIR25TA5 PO; +TRAZ-175 PO
--- NOTE | 2020-10-29 17:18 | NUR ---
PHLEBOTOMIST: PT TO ROOM FROM TRIAGE
[2020-10-29] MEDS ORDERED: ASPIRIN 81 MG TABLET CHEW PO ONE (17:30)
[2020-10-29 17:55] LABS: BASOPHILS % (AUTO) 1 % (0-1); EOSINOPHILS % (AUTO) 1 % (1-7); LYMPHOCYTES % (AUTO) 23 % (22-44); MEAN CORPUSCULAR HEMOGLOBIN 32.8 pg (27.5-34.5); MEAN PLATELET VOLUME 8.8 fL (7.4-10.4); MONOCYTES % (AUTO) 9 % (2-9); NEUTROPHILS % (AUTO) 65 % (42-75); PLATELET COUNT 83 x10^3/uL (130-400); RED BLOOD COUNT 3.28 x10^6/uL (4.38-5.82); RED CELL DISTRIBUTION WIDTH 15.3 % (9.4-14.8)
[2020-10-29 17:56] LABS: MD NO
[2020-10-29] MEDS ORDERED: OXYC5CAP2 PO (17:59)
[2020-10-29] MEDS ORDERED: NITR0.6T4 SL (18:00)
--- NOTE | 2020-10-29 18:01 | NUR ---
pt is a 70m with an extensive medical history who comes in today complaining of chest pressure this morning that was relieved by on nitro. He does not currently have cp. He states he was seen yesterday at [facility] and they told him he had a blockage but they didn't know what they were going to do about it so they sent him home. He arrives today by cab. EKG completed, product inspection coordinator in place, continuous sp02 and cycling vitals. call light within reach.
[2020-10-29 18:04] LABS: ALANINE AMINOTRANSFERASE 13 U/L (12-78); ALBUMIN 3.4 g/dL (3.4-5.0); ANION GAP 6 mmol/L (5-15); CALCIUM 8.4 mg/dL (8.5-10.1); CHLORIDE 97 mmol/L (98-107); CREATININE 3.96 mg/dL (0.7-1.3)
[2020-10-29 18:09] LABS: ALKALINE PHOSPHATASE 165 U/L (45-117); BILIRUBIN,TOTAL 1.1 mg/dL (0.2-1.0); TOTAL PROTEIN 7.5 g/dL (6.4-8.2); TROPONIN I 0.017 ng/mL (0.000-0.045)
--- NOTE | 2020-10-29 19:15 | NUR ---
PT REFUSED CHEWABLE ASA, STS SINCE NOTHING IS WRONG I DONT NEED IT.
--- NOTE | 2020-10-29 19:15 | NUR ---
Patient/Caregiver given discharge instructions and they have confirmed that they understand the instructions. Patient ambulatory with steady gait.
[2020-10-29 19:21] VITALS: BP 136/86
== END 2020-10-29 19:24 | disposition home or self-care (01) ==
LOC: ED 19:01
DX: I20.8 Other forms of angina pectoris (principal); I11.0 Hypertensive heart disease with heart failure; R07.89 Other chest pain; I44.7 Left bundle-branch block, unspecified; E11.9 Type 2 diabetes mellitus without complications; K21.9 Gastro-esophageal reflux disease without esophagitis; M10.9 Gout, unspecified; I48.91 Unspecified atrial fibrillation; I25.2 Old myocardial infarction; J44.9 Chronic obstructive pulmonary disease, unspecified; E78.5 Hyperlipidemia, unspecified; Z88.9 Allergy status to unspecified drugs, medicaments and biological substances; Z88.2 Allergy status to sulfonamides; Z86.73 Personal history of transient ischemic attack (TIA), and cerebral infarction without residual deficits; Z87.891 Personal history of nicotine dependence
CPT/HCPCS: 36415; 71045; 80053; 84484; 85025; 93005; 99283

== ENCOUNTER 2020-12-15 16:39 | Emergency (ER) | payer OTHER, MEDICAID ==
[~2020-12-15] VITALS: Ht 170.2 cm; Wt 73.6 kg
[~2020-12-15 16:39] MED LIST changes: +NITR0.6T4 SL
--- NOTE | 2020-12-15 17:33 | NUR ---
PT TO ROOM 9 W/ C/O NECK PAIN SINCE SUNDAY. PT STATES HE HAS HX NECK PROBLEMS AND STATES "I'M NOT SURE IF I SLEPT WRONG BUT IT HURTS AND I HAVEN'T SLEPT SINCE". PT HAS VERY LIMITED ROM TO NECK. DENIES RIVERA, FEVERS, CHILLS. PT RESTING ON GURNEY. NADN. MONITORS APPLIED. VSS. WARM BLANKET PROVIDED.
--- NOTE | 2020-12-15 17:42 | NUR ---
ERP DR. MARKS AT BEDSIDE FOR EVAL.
[2020-12-15] MEDS ORDERED: METHOCARBAMOL 750 MG TABLET ONE (18:00)
[2020-12-15] MEDS ORDERED: HYDROmorphone 1 MG/ML, 1ML INJ ONE (18:00)
[2020-12-15 18:08] VITALS: BP 120/73
--- NOTE | 2020-12-15 18:08 | NUR ---
PT RESTING ON GURNEY. NADN. ODOM.
[2020-12-15] MEDS ORDERED: HYDROmorphone 1 MG/ML, 1ML INJ IM ONE (18:30)
[2020-12-15] MEDS ORDERED: METHOCARBAMOL 750 MG TABLET PO ONE (18:30)
--- NOTE | 2020-12-15 18:46 | NUR ---
PT RESTING ON GURNEY. NORTH. AWAITING DC PAPERS. STATES PAIN MEDICATION HELPED PT NECK PAIN TREMENDOUSLY.
== END 2020-12-15 19:01 | disposition home or self-care (01) ==
LOC: ED 17:35
DX: M54.12 Radiculopathy, cervical region (principal); E11.9 Type 2 diabetes mellitus without complications; J44.9 Chronic obstructive pulmonary disease, unspecified; I48.91 Unspecified atrial fibrillation; I25.2 Old myocardial infarction; I11.0 Hypertensive heart disease with heart failure; I50.9 Heart failure, unspecified; Z86.73 Personal history of transient ischemic attack (TIA), and cerebral infarction without residual deficits
CPT/HCPCS: 96372; 99283; J1170

== ENCOUNTER 2020-12-21 19:28 | Emergency (ER) | payer OTHER, MEDICAID ==
[~2020-12-21] VITALS: Ht 170.2 cm; Wt 76.4 kg
--- NOTE | 2020-12-21 19:44 | NUR ---
PT HERE FOR CHRONIC NECK PAIN STS WANTS A SHOT FOR PAIN FOR PINCHED NERVE. PT A/O AMBULATORY.
[2020-12-21] MEDS ORDERED: HYDROmorphone 1 MG/ML, 1ML INJ SQ ONE (19:57)
[2020-12-21] MEDS ORDERED: HYDROmorphone 1 MG/ML, 1ML INJ ONE (19:58)
--- NOTE | 2020-12-21 20:02 | NUR ---
PT MEDICATED PER MAR
--- NOTE | 2020-12-21 20:25 | NUR ---
ERP AT BEDSIDE FOR RECHECK PT TO BE DC
[2020-12-21 20:55] VITALS: BP 128/76
== END 2020-12-21 20:58 | disposition home or self-care (01) ==
LOC: ED 20:11
DX: M54.12 Radiculopathy, cervical region (principal); I11.0 Hypertensive heart disease with heart failure; I50.9 Heart failure, unspecified; K21.9 Gastro-esophageal reflux disease without esophagitis; M10.9 Gout, unspecified; I48.91 Unspecified atrial fibrillation; I25.2 Old myocardial infarction; J44.9 Chronic obstructive pulmonary disease, unspecified; E78.5 Hyperlipidemia, unspecified; E11.9 Type 2 diabetes mellitus without complications; Z88.8 Allergy status to other drugs, medicaments and biological substances; Z88.2 Allergy status to sulfonamides; Z86.73 Personal history of transient ischemic attack (TIA), and cerebral infarction without residual deficits
CPT/HCPCS: 96372; 99283; J1170

== ENCOUNTER 2020-12-30 17:01 | Emergency (ER) | payer OTHER, MEDICAID ==
[~2020-12-30] VITALS: Ht 170.2 cm; Wt 77.3 kg
[2020-12-30 17:19] VITALS: BP 118/71
--- NOTE | 2020-12-30 17:31 | NUR ---
BATTER DEPOSITOR: "I NEED MY MUSCLE RELAXER FOR MY NECK REFILLED. IT'S WHATEVER YOU GUYS GAVE ME HERE. THE PHYSICAL THERAPIST TOLD ME TO COME HERE TO GET A REFILL". [facility] TIEN INGRAM PRESENTED W/ PT CHART.
== END 2020-12-30 18:01 | disposition home or self-care (01) ==
LOC: ED 17:30
DX: G89.29 Other chronic pain (principal); M54.2 Cervicalgia; I11.0 Hypertensive heart disease with heart failure; I50.9 Heart failure, unspecified; K21.9 Gastro-esophageal reflux disease without esophagitis; J44.9 Chronic obstructive pulmonary disease, unspecified; I25.2 Old myocardial infarction; I48.91 Unspecified atrial fibrillation; E11.9 Type 2 diabetes mellitus without complications; Z72.9 Problem related to lifestyle, unspecified; Z76.0 Encounter for issue of repeat prescription; Z86.73 Personal history of transient ischemic attack (TIA), and cerebral infarction without residual deficits
CPT/HCPCS: 99281

== ENCOUNTER 2020-12-31 23:10 | Emergency (ER) | payer OTHER, MEDICAID ==
[~2020-12-31] VITALS: Ht 170.2 cm; Wt 72.4 kg
[2020-12-31] MEDS ORDERED: ASPIRIN 81 MG TABLET CHEW PO ONE (23:30)
[2020-12-31] MEDS ORDERED: ASPIRIN 81 MG TABLET CHEW ONE (23:33)
[2020-12-31 23:46] LABS: MEAN CORPUSCULAR HEMOGLOBIN 32.7 pg (27.5-34.5); MEAN CORPUSCULAR HGB CONC 32.8 g/dL (33.2-36.2); MEAN PLATELET VOLUME 9.2 fL (7.4-10.4); PLATELET COUNT 124 x10^3/uL (130-400); RED BLOOD COUNT 3.11 x10^6/uL (4.38-5.82)
[2020-12-31 23:50] LABS: MD YES
[2020-12-31 23:58] LABS: ALBUMIN 3.5 g/dL (3.4-5.0); ANION GAP 6 mmol/L (5-15); CALCIUM 8.5 mg/dL (8.5-10.1); CHLORIDE 105 mmol/L (98-107); CREATININE 4.69 mg/dL (0.7-1.3)
[2021-01-01 00:02] LABS: TROPONIN I < 0.015 ng/mL (0.000-0.045)
[2021-01-01 00:24] LABS: ANISOCYTOSIS 1+; LYMPH#(MANUAL) 1.28 x10^3/uL (1-3.4); LYMPHS% (MANUAL) 17 % (22-44); MONOS% (MANUAL) 4 % (2-9); REACTIVE LYMPHS # (MANUAL) 0.08 x10^3/uL (0-0); REACTIVE LYMPHS % (MANUAL) 1 % (0-0); SEG#(MANUAL) 5.85 x10^3/uL (1.8-6.8); SEGS% (MANUAL) 78 % (42-75)
[2021-01-01 00:25] LABS: ECHINOCYTES 1+; OVALOCYTES 1+
[2021-01-01 00:26] LABS: <PLATELET ESTIMATE> DECREASED; ACANTHOCYTES 1+; LARGE PLATELETS 1+
[2021-01-01 01:05] VITALS: BP 136/87
== END 2021-01-01 01:06 | disposition home or self-care (01) ==
LOC: ED 23:39
DX: R07.89 Other chest pain (principal); D53.9 Nutritional anemia, unspecified; E11.22 Type 2 diabetes mellitus with diabetic chronic kidney disease; I13.2 Hypertensive heart and chronic kidney disease with heart failure and with stage 5 chronic kidney disease, or end stage renal disease; I50.9 Heart failure, unspecified; N18.6 End stage renal disease; Z99.2 Dependence on renal dialysis; J44.9 Chronic obstructive pulmonary disease, unspecified; I25.10 Atherosclerotic heart disease of native coronary artery without angina pectoris; K21.9 Gastro-esophageal reflux disease without esophagitis; I48.91 Unspecified atrial fibrillation; Z86.73 Personal history of transient ischemic attack (TIA), and cerebral infarction without residual deficits; Z87.891 Personal history of nicotine dependence
CPT/HCPCS: 36415; 71045; 80048; 82040; 84484; 85025; 93005; 99283

== ENCOUNTER 2021-02-24 11:27 | Emergency (ER) | payer OTHER, MEDICAID ==
[~2021-02-24] VITALS: Ht 170.2 cm; Wt 75.2 kg
[2021-02-24] MEDS ORDERED: METH-639 PO (11:56)
[2021-02-24] MEDS ORDERED: GABA-826 PO (11:56)
--- NOTE | 2021-02-24 11:57 | NUR ---
PCP sent him for evval as he has been taking nitroglycerin quite frequently (last mi 10 years ago) for generalized chest pressure no chest pain/pressure today dilaysis patient (m/w/f) takes eliquis last dose yesterday am takes midodrine for hypotension vss on youth nutritional monitor ecg in triage
[2021-02-24] MEDS ORDERED: LIDO700A20 TD (11:59)
[2021-02-24] MEDS ORDERED: NITROGLYCERIN SINGLE TAB 0.4 MG SL PRN (12:00)
[2021-02-24] MEDS ORDERED: ASPIRIN 81 MG TABLET CHEW PO ONE (12:00)
[2021-02-24 12:29] LABS: BASOPHILS % (AUTO) 0 % (0-1); EOSINOPHILS % (AUTO) 2 % (1-7); LYMPHOCYTES % (AUTO) 37 % (22-44); MEAN CORPUSCULAR HEMOGLOBIN 33.6 pg (27.5-34.5); MEAN CORPUSCULAR HGB CONC 33.9 g/dL (33.2-36.2); MEAN PLATELET VOLUME 9.6 fL (7.4-10.4); MONOCYTES % (AUTO) 13 % (2-9); NEUTROPHILS % (AUTO) 47 % (42-75); PLATELET COUNT 99 x10^3/uL (130-400); RED BLOOD COUNT 2.81 x10^6/uL (4.38-5.82); RED CELL DISTRIBUTION WIDTH 16.9 % (9.4-14.8)
--- NOTE | 2021-02-24 12:48 | NUR ---
lab to bedside to re-draw sample (prior draw hemolyzed)
--- NOTE | 2021-02-24 13:10 | NUR ---
WITH REASSESS-PATIENT PAIN FREE. RESTING COMFORTABLY VSS ON CUSTOMER OPERATIONS MANAGER EMT MADE AWARE OF NEED FOR REPEAT ECG
[2021-02-24 13:15] LABS: ALANINE AMINOTRANSFERASE 17 U/L (12-78); ALBUMIN 3.3 g/dL (3.4-5.0); ANION GAP 5 mmol/L (5-15); CALCIUM 8.3 mg/dL (8.5-10.1); CHLORIDE 100 mmol/L (98-107); CREATININE 5.61 mg/dL (0.7-1.3)
[2021-02-24 13:19] LABS: ALKALINE PHOSPHATASE 181 U/L (45-117); BILIRUBIN,TOTAL 1.4 mg/dL (0.2-1.0); TOTAL PROTEIN 7.5 g/dL (6.4-8.2); TROPONIN I < 0.015 ng/mL (0.000-0.045)
[2021-02-24 14:51] VITALS: BP 130/81
== END 2021-02-24 14:54 | disposition home or self-care (01) ==
LOC: ED 14:30
DX: I20.8 Other forms of angina pectoris (principal); R94.31 Abnormal electrocardiogram [ECG] [EKG]; I11.0 Hypertensive heart disease with heart failure; I50.9 Heart failure, unspecified; J44.9 Chronic obstructive pulmonary disease, unspecified; I48.91 Unspecified atrial fibrillation; I25.2 Old myocardial infarction; K21.9 Gastro-esophageal reflux disease without esophagitis; E78.5 Hyperlipidemia, unspecified; M10.9 Gout, unspecified; Z98.61 Coronary angioplasty status; Z87.891 Personal history of nicotine dependence; Z86.73 Personal history of transient ischemic attack (TIA), and cerebral infarction without residual deficits
CPT/HCPCS: 36415; 71045; 80053; 84484; 85025; 93005; 99283

== ENCOUNTER 2021-03-22 13:55 | Emergency (ER) | payer OTHER, MEDICAID ==
[~2021-03-22] VITALS: Ht 162.6 cm; Wt 74.0 kg
[~2021-03-22 13:55] MED LIST changes: +GABA-826 PO; +LIDO700A20 TD; +METH-639 PO; +MIDO5TAB4 PO; +OXYC5TAB2 PO; +TICA90TA PO
[2021-03-22 14:59] LABS: BASOPHILS % (AUTO) 1 % (0-1); EOSINOPHILS % (AUTO) 1 % (1-7); LYMPHOCYTES % (AUTO) 26 % (22-44); MEAN CORPUSCULAR HEMOGLOBIN 33.3 pg (27.5-34.5); MEAN CORPUSCULAR HGB CONC 32.6 g/dL (33.2-36.2); MEAN PLATELET VOLUME 9.1 fL (7.4-10.4); MONOCYTES % (AUTO) 12 % (2-9); NEUTROPHILS % (AUTO) 60 % (42-75); PLATELET COUNT 95 x10^3/uL (130-400); RED BLOOD COUNT 2.73 x10^6/uL (4.38-5.82); RED CELL DISTRIBUTION WIDTH 17.5 % (9.4-14.8)
--- NOTE | 2021-03-22 15:00 | NUR ---
PT HAS CO SOB. RECENT STENT PLACED, ON BRILINTA. TROP ELEVATED TO .06. PT STATES HIS SOB WORSENED AFTER DC ON BRILINTA. MD VELEZ AT BEDSIDE. PT ON CARD MONITOR. DENIES CURRENT CP, N/V.
[2021-03-22 15:03] LABS: ALBUMIN 3.3 g/dL (3.4-5.0); ANION GAP 9 mmol/L (5-15); CALCIUM 8.4 mg/dL (8.5-10.1); CHLORIDE 96 mmol/L (98-107)
[2021-03-22 15:09] LABS: ALANINE AMINOTRANSFERASE 20 U/L (12-78); ALKALINE PHOSPHATASE 169 U/L (45-117); BILIRUBIN,TOTAL 2.1 mg/dL (0.2-1.0); TOTAL PROTEIN 7.7 g/dL (6.4-8.2)
--- NOTE | 2021-03-22 16:00 | NUR ---
PT RESTING, VSS. DENIES CP AT THIS TIME.
--- NOTE | 2021-03-22 17:30 | NUR ---
PT AMBULATED TO BATHROOM W STEADY GAIT.
[2021-03-22] MEDS ORDERED: SODIUM ZIRCONIUM CYCLOSILICATE 10 GM PO ONE (18:30)
[2021-03-22 18:41] VITALS: BP 147/88
--- NOTE | 2021-03-22 19:03 | NUR ---
Patient given discharge instructions and they have confirmed that they understand the instructions. Patient ambulatory with steady gait.
== END 2021-03-22 19:19 | disposition home or self-care (01) ==
LOC: ED 18:45
DX: R06.00 Dyspnea, unspecified (principal); R07.89 Other chest pain; I44.7 Left bundle-branch block, unspecified; J44.9 Chronic obstructive pulmonary disease, unspecified; I11.0 Hypertensive heart disease with heart failure; I50.9 Heart failure, unspecified; I48.91 Unspecified atrial fibrillation; K21.9 Gastro-esophageal reflux disease without esophagitis; E78.5 Hyperlipidemia, unspecified; I25.10 Atherosclerotic heart disease of native coronary artery without angina pectoris; Z98.61 Coronary angioplasty status; Z86.73 Personal history of transient ischemic attack (TIA), and cerebral infarction without residual deficits; Z87.891 Personal history of nicotine dependence
CPT/HCPCS: 36415; 71045; 80053; 83880; 84484; 85025; 93005; 99283